=== PATIENT | female | born 1980 | race Caucasian/White ===

== ENCOUNTER 2018-12-11 21:46 | Emergency (ER) | payer BC, OTHER ==
--- NOTE | 2018-12-11 22:11 | EDM.PDOC ---
ED HPI GENERAL MEDICAL PROBLEM - General Chief Complaint: Chest Pain Stated Complaint: CHEST TIGHTNESS/SURGERY 3 WKS AGO Time Seen by Provider: 12/11/18 22:11 Source of Information: Reports: Patient History Limitations: Reports: No Limitations - History of Present Illness INITIAL COMMENTS - FREE TEXT/NARRATIVE: 38-year-old female presents to the ED for evaluation of transient left precordial chest pain which she described as quite burning in intensity. A similar event last evening and seemed to get better after taking 2 Tums. Tonight about 0630 hrs. she developed precordial chest discomfort with burning discomfort but Tums did not seem to help. She had not yet eaten any supper. She has taken to 325 mg aspirins chewed. At present she has no chest pain. Of note patient is 3 weeks post resection of 10-12 inches of her left hemicolon due to severe diverticulitis and a coincidental appendectomy because it was quite firm and hard and abnormal looking. She is back to work today. She has been using Tylenol for pain relief without use of Motrin or Aleve. Does have a mild history of GERD. Doesn't use Tums or Rolaids usually. Denies cough or sputum production. Tonight the pain was bad enough that she did have a small emesis. She got flushed hot and broke out in a bit of a sweat as well. Feels completely back to normal now. She does smoke 4-5 cigarettes a day. Onset: Today Onset Date: 12/11/18 Onset Time: 18:30 Duration: Minutes:, Intermittent, Waxing/Waning Location: Reports: Chest (Left precordial chest pain) Quality: Reports: Ache, Burning Severity: Moderate (Transient lasted about a half an hour or more. No relief with Tums or Rolaids.) Improves with: Reports: None, Other (Pain is gone away spontaneously.) Worsens with: Reports: None Context: Denies: Activity, Exercise, Lifting, Sick Contact, Trauma, Other Associated Symptoms: Reports: Chest Pain, Diaphoresis, Nausea/Vomiting (Had a small emesis of bilious material.), Weakness (Weak and diaphoretic for a period of time). 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 [No Known Home Meds] 12/11/18 [History] Past Medical History Gastrointestinal History: Reports: GERD (Usually very minor.), Other (See Below ) (Recently had a large section of her left hemicolon removed due to extensive diverticulitis. She believes 10-12 inches was removed. Incidental appendectomy) - Past Surgical History GI Surgical History: Reports: Appendectomy (Done at the time that she had left sigmoid colon resection due to extensive diverticulitis because the appendix appeared to be abnormally firm and abnormal in appearance.), Other (See Below) ( Resection of 10-12 inches of her left hemicolon due to extensive diverticulitis. ) Social & Family History - Tobacco Use Smoking Status *Q: Current Every Day Smoker Tobacco Use Within Last Twelve Months: Cigarettes - Living Situation & Occupation Living situation: Reports: Occupation: Employed ED ROS GENERAL - Review of Systems Review Of Systems: See Below (About 4-5 and a) Constitutional: Reports: Malaise, Weakness, Fatigue, Decreased Appetite. Denies : Fever, Chills, Weight Loss HEENT: Reports: No Symptoms Respiratory: Reports: No Symptoms. Denies: Shortness of Breath, Wheezing, Pleuritic Chest Pain Cardiovascular: Reports: Chest Pain, Lightheadedness (They get a little lightheaded and dizzy when the pain was quite intense.). Denies: Blood Pressure Problem, Claudication (She has to present illness), Dyspnea on Exertion , Edema, Orthopnea, Palpitations Endocrine: Reports: No Symptoms GI/Abdominal: Reports: No Symptoms, Other (Feels she is recovering from her recent laparoscopic colon resection for bad diverticulitis and coincidental appendectomy quite well.) : Reports: No Symptoms Musculoskeletal: Reports: No Symptoms Skin: Reports: No Symptoms Neurological: Reports: No Symptoms Psychiatric: Reports: No Symptoms Hematologic/Lymphatic: Reports: No Symptoms Immunologic: Reports: No Symptoms ED EXAM, GENERAL - Physical Exam Exam: See Below Exam Limited By: No Limitations General Appearance: Alert, WD/WN, No Apparent Distress, Other (She remains mildly pallid.) Eye Exam: Bilateral Eye: Normal Inspection (Mildly pale.) Throat/Mouth: Normal Inspection, Normal Lips, Normal Oropharynx Neck: Normal Inspection, Supple, Non-Tender, Full Range of Motion. No: Lymphadenopathy (L), Lymphadenopathy (R) Respiratory/Chest: No Respiratory Distress, Lungs Clear, Normal Breath Sounds, No Accessory Muscle Use Cardiovascular: Normal Peripheral Pulses, Regular Rate, Rhythm, No Edema, No Gallop, No Murmur, No Rub, Other (I could elicit no chest wall tenderness.) Peripheral Pulses: 3+: Posterior Tibial (L), Posterior Tibial (R), Dorsalis Pedis (L), Dorsalis Pedis (R) GI/Abdominal: Normal Bowel Sounds, Soft, Non-Tender, No Organomegaly, No Distention, No Abnormal Bruit, No Mass, Pelvis Stable, Other (Surgical wounds appear to be healing very well.) Back Exam: Normal Inspection ( There is no tenderness in the epigastrium or right upper quadrant of the abdomen.), Full Range of Motion. No: CVA Tenderness (R) Extremities: Other (Lower extremities in particular are normal with no signs of) Neurological: Alert ( potential DVT.), Oriented, CN II-XII Intact, Normal Cognition, Normal Gait Psychiatric: Normal Affect, Normal Mood Skin Exam: Warm, Dry, Intact, No Rash (Mild pallor), Pallor EKG INTERPRETATION EKG Date: 12/11/18 Time: 10:05 Rhythm: NSR Rate (Beats/Min): 77 [place]: Normal P-Wave: Present QRS: Other (Early R-wave transition. Consider septal hypertrophy pattern.) ST-T: Normal QT: Normal EKG Interpretation Comments: Essentially normal ECG Course - Vital Signs Last Recorded V/S: Last Vital Signs Temp 36.3 C 12/11/18 21:57 Pulse 76 12/11/18 21:57 Resp 20 12/11/18 21:57 BP 135/93 H 12/11/18 21:57 Pulse Ox 100 12/11/18 21:57 - Orders/Labs/Meds Orders: Active Orders 24 hr Category Date Time Status EKG Documentation Completion [RC] ASDIRECTED Care 12/11/18 22:02 Active Chest 1V Frontal [CR] Stat Exams 12/11/18 22:24 Taken EKG 12 Lead [EK] Stat Ther 12/11/18 22:02 Ordered Labs: Laboratory Tests 12/11/18 12/11/18 12/11/18 Range/Units 22:35 22:35 22:35 WBC 10.97 H (3.98-10.04) K/mm3 RBC 4.41 (3.98-5.22) M/mm3 Hgb 13.1 (11.2-15.7) gm/L Hct 38.9 (34.1-44.9) % MCV 88.2 (79.4-94.8) fl MCH 29.7 (25.6-32.2) pg MCHC 33.7 (32.2-35.5) g/dl RDW Std Deviation 39.4 (36.4-46.3) fL Plt Count 341 (182-369) K/mm3 MPV 9.1 L (9.4-12.3) fl Neutrophils % (Manual) 56 (40-60) % Band Neutrophils % 0 (0-10) % Lymphocytes % (Manual) 36 (20-40) % Atypical Lymphs % 0 % Monocytes % (Manual) 7 (2-10) % Eosinophils % (Manual) 1 (0.7-5.8) % Basophils % (Manual) 0 L (0.1-1.2) Platelet Estimate Adequate Plt Morphology Comment Normal RBC Morph Comment Normal D-Dimer, Quantitative 0.33 (0.19-0.50) mg/L Sodium 141 (136-145) mEq/L Potassium 3.6 (3.5-5.1) mEq/L Chloride 104 (98-107) mEq/L Carbon Dioxide 25 (21-32) mEq/L Anion Gap 15.6 H (5-15) BUN 11 (7-18) mg/dL Creatinine 0.8 (0.55-1.02) mg/dL Est Cr Clr Drug Dosing 98.07 mL/min Estimated GFR (MDRD) > 60 (>60) mL/min BUN/Creatinine Ratio 13.8 L (14-18) Glucose 98 (74-106) mg/dL Calcium 11.0 H (8.5-10.1) mg/dL Total Bilirubin 0.4 (0.2-1.0) mg/dL AST 15 (15-37) U/L ALT 34 (14-59) U/L Alkaline Phosphatase 46 (46-116) U/L CK-MB (CK-2) < 0.5 (0-3.6) ng/ml Troponin I < 0.017 (0.00-0.056) ng/mL C-Reactive Protein < 0.2 (<1.0) mg/dL Total Protein 7.8 (6.4-8.2) g/dl Albumin 4.2 (3.4-5.0) g/dl Globulin 3.6 gm/dL Albumin/Globulin Ratio 1.2 (1-2) H. pylori IgG Antibody (NEGATIVE) 12/11/18 Range/Units 22:35 WBC (3.98-10.04) K/mm3 RBC (3.98-5.22) M/mm3 Hgb (11.2-15.7) gm/L Hct (34.1-44.9) % MCV (79.4-94.8) fl MCH (25.6-32.2) pg MCHC (32.2-35.5) g/dl RDW Std Deviation (36.4-46.3) fL Plt Count (182-369) K/mm3 MPV (9.4-12.3) fl Neutrophils % (Manual) (40-60) % Band Neutrophils % (0-10) % Lymphocytes % (Manual) (20-40) % Atypical Lymphs % % Monocytes % (Manual) (2-10) % Eosinophils % (Manual) (0.7-5.8) % Basophils % (Manual) (0.1-1.2) Platelet Estimate Plt Morphology Comment RBC Morph Comment D-Dimer, Quantitative (0.19-0.50) mg/L Sodium (136-145) mEq/L Potassium (3.5-5.1) mEq/L Chloride (98-107) mEq/L Carbon Dioxide (21-32) mEq/L Anion Gap (5-15) BUN (7-18) mg/dL Creatinine (0.55-1.02) mg/dL Est Cr Clr Drug Dosing mL/min Estimated GFR (MDRD) (>60) mL/min BUN/Creatinine Ratio (14-18) Glucose (74-106) mg/dL Calcium (8.5-10.1) mg/dL Total Bilirubin (0.2-1.0) mg/dL AST (15-37) U/L ALT (14-59) U/L Alkaline Phosphatase (46-116) U/L CK-MB (CK-2) (0-3.6) ng/ml Troponin I (0.00-0.056) ng/mL C-Reactive Protein (<1.0) mg/dL Total Protein (6.4-8.2) g/dl Albumin (3.4-5.0) g/dl Globulin gm/dL Albumin/Globulin Ratio (1-2) H. pylori IgG Antibody Negative (NEGATIVE) Meds: Medications Discontinued Medications Generic Name Dose Route Start Last Admin Trade Name Freq PRN Reason Stop Dose Admin Famotidine 20 mg 12/11/18 23:57 12/12/18 00:06 Pepcid PO 12/11/18 23:58 20 mg ONETIME ONE Administration Pantoprazole Sodium 40 mg 12/11/18 23:57 12/12/18 00:06 Protonix PO 12/11/18 23:58 40 mg ONETIME ONE Administration - Radiology Interpretation Free Text/Narrative:: 38-year-old female brought to the ED for evaluation of a significant bout of left anterior chest pain is strong burning component to the pain. Pain did get quite intense for a period of time causing her to become diaphoretic cool clammy and she had a small bilious emesis. She states Tums did not help and she did take 2 baby aspirins chewed about an hour ago. At the time of presentation the ED she is pain-free and feels completely back to normal. At a similar type event last night that he seemed to improve with 2 Tums. Is patient is that this is GI in origin. 3 ECG is sinus rhythm with no signs of ischemia. Plan 1 view chest x-ray to be done in routine labs to include a d-dimer due to recent surgery and cardiac markers. - Re-Assessments/Exams Free Text/Narrative Re-Assessment/Exam: 12/11/18 23:13 chest x-ray done portably is within normal limits. Lungs are clear clinic silhouette is normal in size and shape. No sign of vascular congestion no pneumothorax. 12/11/18 23:53 Labs are finally back. White count is slightly elevated at 10.97. Differential is normal with 56% neutrophils and no band cells reported. Hemoglobin is 13.1 with hematocrit of 38.9. Platelet counts 341,000. D-dimer is normal at 0.33. Chemistry shows a sodium of 141. Potassium 3.6. Chloride 104 with a bicarbonate of 25. And a gap minimally elevated at 15.6. BUN is 11 with a creatinine of 0.8. Glucose is 98. Calcium is 11.0 bilirubin is 0.4 remainder the liver function is normal CK-MB fraction is less than 0.5 troponin I is less than 0.017. C-reactive protein is less than 0.2. H. pylori was negative. Protein is 7.8 with an albumin fraction of 4.2. Pain did not come back glucose was in the ED. So therefore ice I suspect she's had gastroesophageal reflux likely during the night in the last few days that has precipitated esophageal spasm. Plan will be to place her on Prilosec 20 mg everyday to bedtime for the next 6 weeks. In the meantime will place her on Pepcid 20 mg now and the Prilosec first dose today as well. Follow-up with her personal care physician for EGD if symptoms persist. Departure - Departure Time of Disposition: 23:57 Disposition: Home, Self-Care 01 Condition: Fair Clinical Impression: Esophageal spasm, Non-cardiac chest pain Instructions: Esophageal Spasm Referrals: Hilaria Abreu NP [Primary Care Provider] - Forms: ED Department Discharge Additional Instructions: Evaluation the emergency room tonight in regards to development of left precordial chest pain which was burning and sharp and stabbing in intensity. It was fairly intense for a period of time and did precipitate some mild vomiting. Since coming to the ED remained pain-free. This suggests noncardiac etiology of chest pain. Complete laboratory tests were carried out and revealed no evidence of heart related illness and no blood clots in the lungs is x-ray was normal ECG was normal as well. It therefore appears that esophageal spasm was the most likely cause of your transient left-sided chest pain both last night and again tonight. This is likely from reflux of stomach contents including acid up into the lower food pipe during sleep and sometime in the last few days. This would can inflame the lower part of the food pipe for 10 days after 1 night of reflux. So for suggest using Pepcid 20 mg once daily at bedtime for the next 5 days and then starting Prilosec 20 g once daily for the next 6 weeks tomorrow night. In the ED tonight you're given the first dose of Pepcid 20 mg and Protonix 40 mg by mouth use Tums or Rolaids if symptoms recur. If symptoms continue then follow-up with your primary care physician to arrange an upper GI endoscopy to have a look down your food pipe and stomach. Of note the bacteria that causes a lot of indigestion dyspepsia and heartburn and peptic ulcer disease called H. pylori testing today was negative. - My Orders Last 24 Hours: My Active Orders 12/11/18 22:02 EKG Documentation Completion [RC] ASDIRECTED EKG 12 Lead [EK] Stat 12/11/18 22:24 Chest 1V Frontal [CR] Stat - Assessment/Plan Last 24 Hours: My Active Orders 12/11/18 22:02 EKG Documentation Completion [RC] ASDIRECTED EKG 12 Lead [EK] Stat 12/11/18 22:24 Chest 1V Frontal [CR] Stat
[2018-12-11] MEDS ORDERED: Famotidine 20 MG Tab PO ONE (23:57)
[2018-12-11] MEDS ORDERED: Pantoprazole 40 MG Tab.CR PO ONE (23:57)
--- NOTE | 2018-12-12 06:35 | CR ---
Chest: Frontal view of the chest was obtained. Comparison: No prior chest x-ray. Heart size and mediastinum are within normal limits. Lungs are clear. Bony structures are grossly intact Impression: 1. Nothing acute is appreciated on frontal chest x-ray. Diagnostic code #1
== END 2018-12-12 00:09 | disposition home or self-care (01) ==
LOC: JD.ED 21:46
DX: K22.4 Dyskinesia of esophagus (principal); R07.89 Other chest pain; F17.210 Nicotine dependence, cigarettes, uncomplicated; Z88.1 Allergy status to other antibiotic agents; Z88.2 Allergy status to sulfonamides
CPT/HCPCS: 36415; 71045; 80053; 82553; 84484; 85007; 85027; 85379; 86140; 86677; 93005; 99285; A9270; 93010; 99284

== ENCOUNTER 2019-08-20 16:22 | Emergency (ER) | payer OTHER ==
[2019-08-20] MEDS ORDERED: Sodium Chloride 0.9% 10 ML Syringe FLUSH PRN ×2 (16:46→16:56)
[2019-08-20] MEDS ORDERED: Diatrizoate Meglumine/Diatrizoate Sodium 37% 120 ML Bottle PO ONE (16:56)
[2019-08-20] MEDS ORDERED: Iopamidol 612 MG/ML 100 ML Bottle IVPUSH ONE (16:56)
[2019-08-20] MEDS ORDERED: Sodium Chloride 0.9% 1,000 ML IV SCH (17:00)
--- NOTE | 2019-08-20 18:28 | EDM.PDOC ---
ED HPI GENERAL MEDICAL PROBLEM - General Chief Complaint: Abdominal Pain Stated Complaint: ABDOMINAL PAIN AND FEVER ZACHERY SENT PT OVER Time Seen by Provider: 08/20/19 16:37 Source of Information: Reports: Patient History Limitations: Reports: No Limitations - History of Present Illness INITIAL COMMENTS - FREE TEXT/NARRATIVE: The patient presents with left lower abdominal pain. This started about 3 to 4 days ago. She has a history of diverticulitis with an abscess back in September and in October she had a colon resection. There are times since then that she will have pain but she watches what she eats and it goes away. She has no fever , chills, cough, chest pain, shortness of breath, nausea or vomiting. She has no dysuria or hematuria. She also has a low grade temp. She was seen at the walk in and told to come over here for possible CT scan. Onset: Gradual Duration: Day(s): (4) Location: Reports: Abdomen Quality: Reports: Sharp Severity: Moderate Improves with: Reports: None Worsens with: Reports: None Associated Symptoms: Denies: Chest Pain, Cough, Fever/Chills, Headaches, Nausea/ Vomiting, Shortness of Breath Left Lower Abdomen Pain Score (Numeric/FACES): 5 - Related Data Allergies Allergy/AdvReac Type Severity Reaction Status Date / Time cyclosporine Allergy Rash Verified 08/20/19 16:39 Penicillins Allergy Rash Verified 08/20/19 16:39 Sulfa (Sulfonamide Allergy Rash Verified 08/20/19 16:39 Antibiotics) erthyromycin Allergy Rash Uncoded 08/20/19 16:39 Home Meds: Home Meds Acyclovir 0 mg PO ASDIRECTED 08/20/19 [History] Butler-3/DHA/Epa/Fish Oil [Fish Oil 1,000 mg Softgel] 1 each PO DAILY 08/20/19 [ History] Pantoprazole [ProTONIX] 40 mg PO DAILY 08/20/19 [History] Past Medical History Cardiovascular History: Reports: None Respiratory History: Reports: None Gastrointestinal History: Reports: Diverticulosis, GERD, Other (See Below) Other Gastrointestinal History: Colon Abscess Genitourinary History: Reports: None 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 Social & Family History - Tobacco Use Smoking Status *Q: Never Smoker - Caffeine Use Caffeine Use: Reports: Coffee - Recreational Drug Use Recreational Drug Use: No - Living Situation & Occupation Living situation: Reports: Occupation: Employed ED ROS GENERAL - Review of Systems Review Of Systems: See Below Constitutional: Reports: No Symptoms HEENT: Reports: No Symptoms Respiratory: Reports: No Symptoms Cardiovascular: Reports: No Symptoms Endocrine: Reports: No Symptoms GI/Abdominal: Reports: Abdominal Pain. Denies: Nausea, Vomiting : Reports: No Symptoms ED EXAM, GI/ABD - Physical Exam Exam: See Below Exam Limited By: No Limitations General Appearance: Alert, No Apparent Distress Ears: Normal External Exam Nose: Normal Inspection Head: Atraumatic, Normocephalic Neck: Normal Inspection Respiratory/Chest: No Respiratory Distress, Lungs Clear, Normal Breath Sounds Cardiovascular: Regular Rate, Rhythm, No Edema, No Murmur GI/Abdominal Exam: Soft, No Organomegaly, No Mass, Tender (Moderate tenderness to the left lower abdomen) Course - Vital Signs Last Recorded V/S: Last Vital Signs Temp 99.4 F 08/20/19 16:36 Pulse 76 08/20/19 16:36 Resp 16 08/20/19 16:36 BP 121/82 08/20/19 16:36 Pulse Ox 99 08/20/19 16:36 - Orders/Labs/Meds Orders: Active Orders 24 hr Category Date Time Status Peripheral IV Care [RC] . DIRECTED Care 08/20/19 16:47 Active Sodium Chloride 0.9% [Normal Saline] 1,000 ml Med 08/20/19 17:00 Active IV ASDIRECTED Sodium Chloride 0.9% [Saline Flush] Med 08/20/19 16:46 Active 10 ml FLUSH ASDIRECTED PRN Sodium Chloride 0.9% [Saline Flush] Med 08/20/19 16:56 Active 10 ml FLUSH ONETIME PRN Peripheral IV Insertion Adult [OM.PC] Stat Oth 08/20/19 16:46 Ordered Medication Orders Sodium Chloride (Normal Saline) 1,000 mls @ 125 mls/hr IV ASDIRECTED OMI Last Admin: 08/20/19 16:56 Dose: 125 mls/hr Sodium Chloride (Saline Flush) 10 ml FLUSH ASDIRECTED PRN PRN Reason: Keep Vein Open Last Admin: 08/20/19 16:55 Dose: 10 ml Sodium Chloride (Saline Flush) 10 ml FLUSH ONETIME PRN PRN Reason: Keep Vein Open Last Admin: 08/20/19 18:13 Dose: 10 ml Labs: Laboratory Tests 08/20/19 08/20/19 08/20/19 Range/Units 16:50 16:50 16:50 WBC 8.07 (3.98-10.04) K/mm3 RBC 4.63 (3.98-5.22) M/mm3 Hgb 14.0 (11.2-15.7) gm/dl Hct 41.2 (34.1-44.9) % MCV 89.0 (79.4-94.8) fl MCH 30.2 (25.6-32.2) pg MCHC 34.0 (32.2-35.5) g/dl RDW Std Deviation 39.3 (36.4-46.3) fL Plt Count 279 (182-369) K/mm3 MPV 9.0 L (9.4-12.3) fl Neut % (Auto) 52.0 (34.0-71.1) % Lymph % (Auto) 36.1 (19.3-51.7) % Bracken % (Auto) 10.0 (4.7-12.5) % Eos % (Auto) 1.5 (0.7-5.8) Baso % (Auto) 0.2 (0.1-1.2) % Neut # (Auto) 4.19 (1.56-6.13) K/mm3 Lymph # (Auto) 2.91 (1.18-3.74) K/mm3 Bracken # (Auto) 0.81 H (0.24-0.36) K/mm3 Eos # (Auto) 0.12 (0.04-0.36) K/mm3 Baso # (Auto) 0.02 (0.01-0.08) K/mm3 Sodium 142 (136-145) mEq/L Potassium 4.0 (3.5-5.1) mEq/L Chloride 106 (98-107) mEq/L Carbon Dioxide 25 (21-32) mEq/L Anion Gap 15.0 (5-15) BUN 14 (7-18) mg/dL Creatinine 1.0 (0.55-1.02) mg/dL Est Cr Clr Drug Dosing 77.70 mL/min Estimated GFR (MDRD) > 60 (>60) mL/min BUN/Creatinine Ratio 14.0 (14-18) Glucose 88 (74-106) mg/dL Calcium 8.6 D (8.5-10.1) mg/dL Total Bilirubin 0.3 (0.2-1.0) mg/dL AST 11 L (15-37) U/L ALT 32 (14-59) U/L Alkaline Phosphatase 41 L (46-116) U/L Total Protein 7.1 (6.4-8.2) g/dl Albumin 4.0 (3.4-5.0) g/dl Globulin 3.1 gm/dL Albumin/Globulin Ratio 1.3 (1-2) Lipase 175 (73-393) U/L HCG, Qual Negative (NEGATIVE) Urine Color (Yellow) Urine Appearance (Clear) Urine pH (5.0-8.0) Ur Specific Kellogg (1.005-1.030) Urine Protein (Negative) Urine Glucose (UA) (Negative) Urine Ketones (Negative) Urine Occult Blood (Negative) Urine Nitrite (Negative) Urine Bilirubin (Negative) Urine Urobilinogen (0.2-1.0) Ur Leukocyte Esterase (Negative) Urine RBC (0-5) /hpf Urine WBC (0-5) /hpf Ur Squamous Epith Cells (0-5) /hpf Urine Bacteria (FEW) /hpf Urine Mucus (FEW) /hpf 08/20/19 Range/Units 17:04 WBC (3.98-10.04) K/mm3 RBC (3.98-5.22) M/mm3 Hgb (11.2-15.7) gm/dl Hct (34.1-44.9) % MCV (79.4-94.8) fl MCH (25.6-32.2) pg MCHC (32.2-35.5) g/dl RDW Std Deviation (36.4-46.3) fL Plt Count (182-369) K/mm3 MPV (9.4-12.3) fl Neut % (Auto) (34.0-71.1) % Lymph % (Auto) (19.3-51.7) % Bracken % (Auto) (4.7-12.5) % Eos % (Auto) (0.7-5.8) Baso % (Auto) (0.1-1.2) % Neut # (Auto) (1.56-6.13) K/mm3 Lymph # (Auto) (1.18-3.74) K/mm3 Bracken # (Auto) (0.24-0.36) K/mm3 Eos # (Auto) (0.04-0.36) K/mm3 Baso # (Auto) (0.01-0.08) K/mm3 Sodium (136-145) mEq/L Potassium (3.5-5.1) mEq/L Chloride (98-107) mEq/L Carbon Dioxide (21-32) mEq/L Anion Gap (5-15) BUN (7-18) mg/dL Creatinine (0.55-1.02) mg/dL Est Cr Clr Drug Dosing mL/min Estimated GFR (MDRD) (>60) mL/min BUN/Creatinine Ratio (14-18) Glucose (74-106) mg/dL Calcium (8.5-10.1) mg/dL Total Bilirubin (0.2-1.0) mg/dL AST (15-37) U/L ALT (14-59) U/L Alkaline Phosphatase (46-116) U/L Total Protein (6.4-8.2) g/dl Albumin (3.4-5.0) g/dl Globulin gm/dL Albumin/Globulin Ratio (1-2) Lipase (73-393) U/L HCG, Qual (NEGATIVE) Urine Color Yellow (Yellow) Urine Appearance Clear (Clear) Urine pH 6.5 (5.0-8.0) Ur Specific Kellogg > or = 1.030 (1.005-1.030) Urine Protein Negative (Negative) Urine Glucose (UA) Negative (Negative) Urine Ketones Negative (Negative) Urine Occult Blood Negative (Negative) Urine Nitrite Negative (Negative) Urine Bilirubin Negative (Negative) Urine Urobilinogen 0.2 (0.2-1.0) Ur Leukocyte Esterase Negative (Negative) Urine RBC Not seen (0-5) /hpf Urine WBC 0-5 (0-5) /hpf Ur Squamous Epith Cells 10-20 H (0-5) /hpf Urine Bacteria Not seen (FEW) /hpf Urine Mucus Not seen (FEW) /hpf Meds: Medications Generic Name Dose Route Start Last Admin Trade Name Freq PRN Reason Stop Dose Admin Sodium Chloride 1,000 mls @ 125 mls/hr 08/20/19 17:00 08/20/19 16:56 Normal Saline IV 125 mls/hr ASDIRECTED OIM Administration Sodium Chloride 10 ml 08/20/19 16:46 08/20/19 16:55 Saline Flush FLUSH 10 ml ASDIRECTED PRN Administration Keep Vein Open Sodium Chloride 10 ml 08/20/19 16:56 08/20/19 18:13 Saline Flush FLUSH 10 ml ONETIME PRN Administration Keep Vein Open Discontinued Medications Generic Name Dose Route Start Last Admin Trade Name Freq PRN Reason Stop Dose Admin Diatrizoate Meglum/Diatrizoate Sod 120 ml 08/20/19 16:56 08/20/19 18:13 Gastrografin 37% PO 08/20/19 16:57 120 ml ONETIME ONE Administration Iopamidol 100 ml 08/20/19 16:56 08/20/19 18:13 Isovue-300 (61%) IVPUSH 08/20/19 16:57 100 ml ONETIME ONE Administration - Re-Assessments/Exams Free Text/Narrative Re-Assessment/Exam: 08/20/19 18:27 I ordered an IV saline lock, labs, UA and a CT of her abdomen and pelvis with IV and oral contrast. Her CBC and CMP look good. Her lipase is negative. Her HCG is negative and her UA shows no UTI. I am waiting for the CT scan now. 08/20/19 18:[address] shows a 4.3cm cyst within the left adnexa most likely ovarian in location. Mild increased stool throughout the colon. No additional abnormality is appreciated on CT study of the abdomen and pelvis. I will have her take some miralax to help clean her out and I will have her follow up with Dr Woods. Departure - Departure Time of Disposition: 19:00 Disposition: Home, Self-Care 01 Condition: Good Clinical Impression: Left ovarian cyst Abdominal pain Qualifiers: Abdominal location: left lower quadrant Qualified Code(s): R10.32 - Left lower quadrant pain - Discharge Information *PRESCRIPTION DRUG MONITORING PROGRAM REVIEWED*: Not Applicable *COPY OF PRESCRIPTION DRUG MONITORING REPORT IN PATIENT LAWSON: Not Applicable Referrals: Hilaria Abreu NP [Primary Care Provider] - Grecia Woods MD [Physician] - 1 Week Forms: ED Department Discharge Additional Instructions: Drink plenty of fluids. Try some miralax to have a bowel movement. Take tylenol or motrin for pain. Follow up with Dr Woods for the ovarian cyst. Please return if you are worse. Sepsis Event Note - Evaluation Sepsis Screening Result: No Definite Risk - Focused Exam Vital Signs: Vital Signs Temp Pulse Resp BP Pulse Ox 08/20/19 16:36 99.4 F 76 16 121/82 99 Date Exam was Performed: 08/20/19 Time Exam was Performed: 18:56 - My Orders Last 24 Hours: My Active Orders 08/20/19 16:46 Sodium Chloride 0.9% [Saline Flush] 10 ml FLUSH ASDIRECTED PRN Peripheral IV Insertion Adult [OM.PC] Stat 08/20/19 16:47 Peripheral IV Care [RC] . DIRECTED 08/20/19 16:56 Sodium Chloride 0.9% [Saline Flush] 10 ml FLUSH ONETIME PRN 08/20/19 17:00 Sodium Chloride 0.9% [Normal Saline] 1,000 ml IV ASDIRECTED - Assessment/Plan Last 24 Hours: My Active Orders 08/20/19 16:46 Sodium Chloride 0.9% [Saline Flush] 10 ml FLUSH ASDIRECTED PRN Peripheral IV Insertion Adult [OM.PC] Stat 08/20/19 16:47 Peripheral IV Care [RC] . DIRECTED 08/20/19 16:56 Sodium Chloride 0.9% [Saline Flush] 10 ml FLUSH ONETIME PRN 08/20/19 17:00 Sodium Chloride 0.9% [Normal Saline] 1,000 ml IV ASDIRECTED
--- NOTE | 2019-08-20 18:53 | CT ---
CT abdomen and pelvis Technique: Multiple axial sections were obtained from above the dome of the diaphragm inferiorly through the pubic symphysis. Intravenous contrast and oral contrast has been given. Delayed images were obtained through the bladder. Comparison: No prior abdominal imaging. Findings: Visualized lung bases show nothing acute. Liver contains no focal abnormality. Spleen appears within normal limits. Adrenal glands show no nodule. Pancreas appears within normal limits. Gallbladder contains no calcified gallstones. Kidneys show symmetric contrast enhancement without hydronephrosis or mass. Aorta shows no aneurysm. No retroperitoneal adenopathy or mesenteric abnormalities are seen. Cyst is noted within the left adnexa most likely ovarian in location measuring 4.3 cm. No additional pelvic abnormality is appreciated. No free fluid or inflammatory change is seen. Mild increased stool is noted within the colon. Delayed images shows contrast within the distal ureters and within the bladder. Appendix not definitely appreciated. Bone window settings were reviewed which shows no acute osseous finding. Impression: 1. 4.3 cm cyst within the left adnexa most likely ovarian in location. 2. Mild increased stool throughout the colon. 3. No additional abnormality is appreciated on CT study of the abdomen and pelvis. Diagnostic code #3 This report was dictated in [place] Standard Time
== END 2019-08-20 19:12 | disposition home or self-care (01) ==
LOC: JD.ED 16:22
DX: N83.202 Unspecified ovarian cyst, left side (principal); Z88.1 Allergy status to other antibiotic agents; Z88.0 Allergy status to penicillin; Z88.2 Allergy status to sulfonamides
CPT/HCPCS: 36415; 74177; 80053; 81001; 83690; 84703; 85025; 99284; J7030; Q9963; Q9967; 99283

== ENCOUNTER 2020-09-20 16:31 | Emergency (ER) | payer OTHER ==
--- NOTE | 2020-09-20 17:52 | EDM.PDOC ---
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 This started last night. She noticed a couple pea sized clots. She is G1 and 6 weeks gestation. She said the left sided pelvic pain felt like when she had ovarian cysts. She has no fever, chills, cough, congestion, runny nose, chest pain, shortness of breath, abdominal pain, nausea or vomiting. She has no diarrhea or dysuria. Dr Hoyos is her doctor. Onset: Gradual Duration: Day(s): (last night) Location: Reports: Pelvis Quality: Reports: Other (cramping) Severity: Moderate Improves with: Reports: None Worsens with: Reports: None Associated Symptoms: Reports: No Other Symptoms Left Pelvic Pain Score (Numeric/FACES): 5 - Related Data Allergies Allergy/AdvReac Type Severity Reaction Status Date / Time cyclosporine Allergy Rash Verified 09/20/20 17:15 Penicillins Allergy Rash Verified 09/20/20 17:15 Sulfa (Sulfonamide Allergy Rash Verified 09/20/20 17:15 Antibiotics) erthyromycin Allergy Rash Uncoded 09/20/20 17:15 Home Meds: Home Meds Acyclovir 0 mg PO ASDIRECTED 08/20/19 [History] Pantoprazole [ProTONIX] 40 mg PO DAILY 08/20/19 [History] Vit No.129/Iron/FA [ Tablet] 1 each PO DAILY 09/20/20 [History] Past Medical History - Past Health History Medical/Surgical History: Denies Medical/Surgical History Cardiovascular History: Reports: None Respiratory History: Reports: None Gastrointestinal History: Reports: Diverticulosis, GERD, Other (See Below) Other Gastrointestinal History: Colon Abscess Genitourinary History: Reports: None ICE CRUSHER History: Reports: Polycystic Ovaries, Musculoskeletal History: Reports: None Neurological History: Reports: None Psychiatric History: Reports: None Endocrine/Metabolic History: Reports: None Hematologic History: Reports: None Immunologic History: Reports: None Oncologic (Cancer) History: Reports: None Dermatologic History: Reports: None - Infectious Disease History Infectious Disease History: Reports: None - Past Surgical History HEENT Surgical History: Reports: Tonsillectomy GI Surgical History: Reports: Appendectomy, Other (See Below) Other GI Surgeries/Procedures: Pt had colon resection in October 2018. Social & Family History - Family History Family Medical History: No Pertinent Family History - Tobacco Use Tobacco Use Status *Q: Current Some Day Tobacco User Years of Tobacco use: 15 Packs/Tins Daily: 1 Second Hand Smoke Exposure: No - Caffeine Use Caffeine Use: Reports: Coffee - Recreational Drug Use Recreational Drug Use: No - Living Situation & Occupation Living situation: Reports: Occupation: Employed ED ROS GENERAL - Review of Systems Review Of Systems: See Below Constitutional: Reports: No Symptoms HEENT: Reports: No Symptoms Respiratory: Reports: No Symptoms Cardiovascular: Reports: No Symptoms Endocrine: Reports: No Symptoms GI/Abdominal: Reports: No Symptoms : Reports: Other (Left sided pelvic pain and vaginal bleeding) Musculoskeletal: Reports: No Symptoms Skin: Reports: No Symptoms ED EXAM, GI/ABD - Physical Exam Exam: See Below Exam Limited By: No Limitations General Appearance: Alert, No Apparent Distress Ears: Normal External Exam Nose: Normal Inspection Head: Atraumatic, Normocephalic Neck: Normal Inspection Respiratory/Chest: No Respiratory Distress, Lungs Clear, Normal Breath Sounds Cardiovascular: Regular Rate, Rhythm, No Edema, No Murmur GI/Abdominal Exam: Soft, Non-Tender, No Organomegaly, No Mass (Female) Exam: Other (Cervix is closed and a small amount of brownish blood present) Course - Vital Signs Last Recorded V/S: Last Vital Signs Temp 98.1 F 09/20/20 17:12 Pulse 91 09/20/20 17:12 Resp 18 09/20/20 17:12 BP 125/79 09/20/20 17:12 Pulse Ox 99 09/20/20 17:12 - Orders/Labs/Meds Orders: Active Orders 24 hr Category Date Time Status Pelvic Exam, Set Up [RC] ASDIRECTED Care 09/20/20 17:30 Active OB Transvaginal [US] Stat Exams 09/20/20 17:22 Taken PATIENT RETYPE [BBK] Routine Lab 09/20/20 18:14 Ordered Labs: Laboratory Tests 09/20/20 09/20/20 09/20/20 Range/Units 17:37 17:37 17:37 WBC 8.38 (3.98-10.04) K/mm3 RBC 4.36 (3.98-5.22) M/mm3 Hgb 12.3 D (11.2-15.7) gm/dl Hct 38.0 (34.1-44.9) % MCV 87.2 (79.4-94.8) fl MCH 28.2 (25.6-32.2) pg MCHC 32.4 (32.2-35.5) g/dl RDW Std Deviation 40.3 (36.4-46.3) fL Plt Count 340 (182-369) K/mm3 MPV 8.9 L (9.4-12.3) fl Neut % (Auto) 57.5 (34.0-71.1) % Lymph % (Auto) 30.4 (19.3-51.7) % Falls % (Auto) 10.0 (4.7-12.5) % Eos % (Auto) 1.7 (0.7-5.8) Baso % (Auto) 0.2 (0.1-1.2) % Neut # (Auto) 4.81 (1.56-6.13) K/mm3 Lymph # (Auto) 2.55 (1.18-3.74) K/mm3 Falls # (Auto) 0.84 H (0.24-0.36) K/mm3 Eos # (Auto) 0.14 (0.04-0.36) K/mm3 Baso # (Auto) 0.02 (0.01-0.08) K/mm3 HCG, Quant 4747.0 mIU/mL Blood Type O POSITIVE - Re-Assessments/Exams Free Text/Narrative Re-Assessment/Exam: 09/20/20 17:52 I ordered labs and a transvaginal US. 09/20/20 19:05 Her CBC looks good. Her quant HCT is 4747. Her blood type is O positive. Her US shows a sac like structure is present within the uterus without yolk sac or pole identified this cannot be confirmed as an intrauterine and ectopic cannot be excluded based on this fact. Correlation with serial beta HCG level suggested. Early intrauterine remains possible. Bilateral ovarian and adnexal cysts identified. Slightly complex cyst on the left with vascular flow is identified. Again, ectopic cannot be excluded and must be correlated with serial beta HCG levels and clinical scenario. I called Dr Hoyos and she will follow up with her on Tuesday or Tuesday. Departure - Departure Time of Disposition: 19:10 Disposition: Home, Self-Care 01 Condition: Good Clinical Impression: Vaginal bleeding affecting early , Ovarian cyst, left Qualifiers: Weeks of gestation: less than 8 weeks Qualified Code(s): Z3A.01 - Less than 8 weeks gestation of - Discharge Information *PRESCRIPTION DRUG MONITORING PROGRAM REVIEWED*: Not Applicable *COPY OF PRESCRIPTION DRUG MONITORING REPORT IN PATIENT [place]SON: Not Applicable Referrals: Bekah Hoyos MD [Primary Care Provider] - 3 Days Forms: ED Department Discharge Additional Instructions: Do not have vaginal intercourse until cleared by Dr Hoyos. No heavy lifting over 20 pounds. Please return if you have more pain or bleeding. Follow up with Dr Hoyos on Tuesday or Tuesday. If you do not hear from the clinic by noon Tuesday call her office to get a follow up time. Sepsis Event Note (ED) - Evaluation Sepsis Screening Result: No Definite Risk - Focused Exam Vital Signs: Vital Signs Temp Pulse Resp BP Pulse Ox 09/20/20 17:12 98.1 F 91 18 125/79 99 - My Orders Last 24 Hours: My Active Orders 09/20/20 17:22 OB Transvaginal [US] Stat 09/20/20 17:30 Pelvic Exam, Set Up [RC] ASDIRECTED 09/20/20 18:14 PATIENT RETYPE [BBK] Routine - Assessment/Plan Last 24 Hours: My Active Orders 09/20/20 17:22 OB Transvaginal [US] Stat 09/20/20 17:30 Pelvic Exam, Set Up [RC] ASDIRECTED 09/20/20 18:14 PATIENT RETYPE [BBK] Routine
--- NOTE | 2020-09-21 10:54 | US ---
First trimester obstetrical ultrasound: Multiple real-time images were obtained transvaginally. Comparison: No previous study is available. Small intrauterine gestational sac is seen. No pole or yolk sac is definitely present at this time. Endometrium is thickened. Both maternal ovaries are seen. Small 3.3 cm cyst noted within the right ovary and slightly complicated cyst within the left ovary measuring 2.3 cm. Small 1.9 cm adnexal cyst is noted. Impression: 1. Small intrauterine gestational sac with no pole or yolk sac. Findings could represent empty gestational sac versus early and structures are not visualized. Consider repeat study in 11 days. 2. Small ovarian adnexal cysts as noted above. Diagnostic code #3 I agree with preliminary report by Nilson finalized on 09/20/20, 7:34 PM VP PRODUCT
== END 2020-09-20 19:17 | disposition home or self-care (01) ==
LOC: JD.ED 16:31
DX: O34.81 Maternal care for other abnormalities of pelvic organs, first trimester (principal); N83.202 Unspecified ovarian cyst, left side; O20.9 Hemorrhage in early pregnancy, unspecified; O99.611 Diseases of the digestive system complicating pregnancy, first trimester; K21.9 Gastro-esophageal reflux disease without esophagitis; Z88.1 Allergy status to other antibiotic agents; Z88.0 Allergy status to penicillin; Z88.2 Allergy status to sulfonamides; Z79.899 Other long term (current) drug therapy; Z3A.01 Less than 8 weeks gestation of pregnancy; Z72.0 Tobacco use
CPT/HCPCS: 36415; 76817; 76817-26; 84702; 85025; 86900; 86901; 99283; 99284-25

== ENCOUNTER 2020-10-11 06:31 | Inpatient (IN) | payer OTHER ==
--- NOTE | 2020-10-11 07:03 | EDM.PDOC ---
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 She reports came on rather suddenly left lower quadrant left mid abdomen about 2100 hrs. last evening. Pain is gradually intensified and is now felt generalized throughout the abdomen. Associated recurrent nausea and vomiting of bilious emesis during the night due to intensity of pain. Last menstrual period was estimated to be around August 17. She has had 1 ultraso unds in which showed a adamson fetus. Patient cannot hardly cough sneeze or walk due to the intensity of the pain. Pain was worsened by traveling in motor vehicle to the hospital with her . No improvement or relief of pain with bowel movements. She had 2 bowel movements overnight. No relief with voiding. Pain is estimated to be 3 out of 10 at rest and 7-8 out of 10 with tr dori to walk. Patient has had no previous abdominal surgery. Patient has been up all night due to the severity of his abdominal pain. She cannot stand or walk fully erect. Patient did see Dr. Hoyos approximately 2 weeks ago for initial evaluation and an ultrasound on October 01. Onset: Sudden Onset Date: 10/10/20 Onset Time: 21:00 Duration: Hour(s):, Constant, Getting Worse Location: Reports: Abdomen (See history of present illness.) Quality: Reports: Ache (Deep aching pain throughout the abdomen worse on the left side.) Severity: Severe Improves with: Reports: Rest Worsens with: Reports: Other (Deep breathing coughing, laughing or trying to walk makes the pain worse.), Movement Context: Reports: Other. Denies: Activity, Exercise, Lifting, Sick Contact, Trauma Associated Symptoms: Denies: No Other Symptoms, Confusion (Occurrence), Chest Pain, Cough, cough w sputum, Diaphoresis, Fever/Chills, Headaches, Loss of Appetite, Malaise, Nausea/Vomiting, Rash, Seizure, Shortness of Breath, Syncope, Weakness Treatments CATTLE DEHORNER: Reports: Acetaminophen Abdomen Pain Score (Numeric/FACES): 8 - Related Data Allergies Allergy/AdvReac Type Severity Reaction Status Date / Time Cephalosporins Allergy Rash Verified 10/11/20 11:20 Penicillins Allergy Rash Verified 10/11/20 07:00 Sulfa (Sulfonamide Allergy Rash Verified 10/11/20 07:00 Antibiotics) erthyromycin Allergy Rash Uncoded 09/20/20 17:15 Home Meds: Home Meds Acyclovir 0 mg PO ASDIRECTED 08/20/19 [History] Pantoprazole [ProTONIX] 40 mg PO DAILY 08/20/19 [History] Vit No.129/Iron/FA [ Tablet] 1 each PO DAILY 09/20/20 [History] Past Medical History - Past Health History Medical/Surgical History: Denies Medical/Surgical History Cardiovascular History: Reports: None Respiratory History: Reports: None Gastrointestinal History: Reports: Diverticulosis, GERD, Other (See Below) Other Gastrointestinal History: Colon Abscess--patient developed severe diverticulitis 2 years ago and developed a very difficult diverticular abscess that was not responding to antibiotic therapy for 5 days. She was thus taken to surgery with resection of 8 inches of colon in [place]. At that time they also did take out her appendix. Genitourinary History: Reports: None CARTON STAPLER History: Reports: Polycystic Ovaries, : 1 Para: 0 Other CARTON STAPLER History: Last normal menstrual period estimated to be August 17. Musculoskeletal History: Reports: None Neurological History: Reports: None Psychiatric History: Reports: None Endocrine/Metabolic History: Reports: None Hematologic History: Reports: None Immunologic History: Reports: None Oncologic (Cancer) History: Reports: None Dermatologic History: Reports: None - Infectious Disease History Infectious Disease History: Reports: None - Past Surgical History HEENT Surgical History: Reports: Tonsillectomy GI Surgical History: Reports: Appendectomy, Other (See Below) Other GI Surgeries/Procedures: Pt had colon resection in October 2018. Social & Family History - Family History Family Medical History: No Pertinent Family History - Caffeine Use Caffeine Use: Reports: Coffee - Living Situation & Occupation Living situation: Reports: Occupation: Employed ED ROS GENERAL - Review of Systems Review Of Systems: See Below Constitutional: Reports: Fatigue, Decreased Appetite. Denies: Fever, Chills, Malaise HEENT: Reports: No Symptoms Respiratory: Reports: Shortness of Breath Cardiovascular: Reports: No Symptoms (Subjective dyspnea as deep breathing makes the abdominal pain worse.) Endocrine: Reports: Fatigue GI/Abdominal: Reports: Abdominal Pain, Decreased Appetite, Nausea, Vomiting (Bilious vomiting times about 5 overnight due to the intensity of the pain.). Denies: Bloody Stool, Constipation (Diffuse severe abdominal pain starting 21 hours last night.), Diarrhea, Difficulty Swallowing, Distension, Flatus, Hematemesis, Hematochezia, Melena, Mucous in Stool : Reports: Frequency Musculoskeletal: Reports: No Symptoms Skin: Reports: No Symptoms Neurological: Reports: No Symptoms Psychiatric: Reports: No Symptoms Hematologic/Lymphatic: Reports: No Symptoms Immunologic: Reports: No Symptoms ED EXAM - Physical Exam Exam: See Below Exam Limited By: No Limitations General Appearance: Alert, WD/WN, Moderate Distress, Other (Temperature is 36.2 degrees. Heart rate 101) Eye Exam: Bilateral Eye: Normal Inspection (No scleral icterus no blepharal pallor.), PERRL Throat/Mouth: Normal Inspection, Normal Lips, Normal Oropharynx, Other Head: Atraumatic, Normocephalic (Tongue is mildly dry.) Neck: Normal Inspection, Supple, Non-Tender, Full Range of Motion. No: Carotid Bruit, Lymphadenopathy (L), Lymphadenopathy (R) Respiratory/Chest: No Respiratory Distress, Lungs Clear, Normal Breath Sounds, No Accessory Muscle Use Cardiovascular: Normal Peripheral Pulses, Regular Rate, Rhythm, No Edema, No Gallop, No Murmur, No Rub GI/Abdominal Exam: Distended (Mildly distended), Guarding, Rebound (She has guarding on the left side with rebound tenderness. Clinically has an acute abdomen with evidence of peritonitis.), Tender (Left lower quadrant adjacent to the umbilicus and left lower quadrant of the abdomen mtender to percussion and suprapubically. ), Abnormal Bowel Sounds (Bowel sounds are decreased from the norm.) Back Exam: Normal Inspection, Full Range of Motion. No: CVA Tenderness (L), CVA Tenderness (R) Extremities: Normal Inspection, Normal Range of Motion, Non-Tender, No Pedal Edema Neurological: Alert, Oriented, CN II-XII Intact Psychiatric: Anxious Skin Exam: Warm, Dry, Intact, Normal Color, No Rash Course - Vital Signs Last Recorded V/S: Last Vital Signs Temp 36.2 C 10/11/20 06:54 Pulse 101 H 10/11/20 06:54 Resp 16 10/11/20 06:54 BP 107/61 10/11/20 06:54 Pulse Ox 100 10/11/20 06:54 - Orders/Labs/Meds Orders: Active Orders 24 hr Category Date Time Status Admission Status [Patient Status] [ADT] Routine ADT 10/11/20 11:48 Ordered Notify Provider Consults [RC] ASDIRECTED Care 10/11/20 08:12 Active Consult to Physician [CONS] Stat Cons 10/11/20 08:11 Active Dextrose 5%-0.9% NaCl [Dextrose 5%-Normal Saline] 1,000 Med 10/11/20 07:15 Active ml IV ASDIRECTED Medication Orders Dextrose/Sodium Chloride (Dextrose 5%-Normal Saline) 1,000 mls @ 500 mls/hr IV ASDIRECTED OMI Last Admin: 10/11/20 07:30 Dose: 500 mls/hr Documented by: MEGHANA Labs: Laboratory Tests 10/11/20 10/11/20 10/11/20 Range/Units 07:20 07:25 07:25 WBC 18.82 H (3.98-10.04) K/mm3 RBC 4.44 (3.98-5.22) M/mm3 Hgb 12.5 (11.2-15.7) gm/dl Hct 37.8 (34.1-44.9) % MCV 85.1 (79.4-94.8) fl MCH 28.2 (25.6-32.2) pg MCHC 33.1 (32.2-35.5) g/dl RDW Std Deviation 40.8 (36.4-46.3) fL Plt Count 337 (182-369) K/mm3 MPV 9.1 L (9.4-12.3) fl Neut % (Auto) 86.2 H (34.0-71.1) % Lymph % (Auto) 7.3 L (19.3-51.7) % [place] % (Auto) 5.8 (4.7-12.5) % Eos % (Auto) 0.3 L (0.7-5.8) Baso % (Auto) 0.1 (0.1-1.2) % Neut # (Auto) 16.22 H (1.56-6.13) K/mm3 Lymph # (Auto) 1.38 (1.18-3.74) K/mm3 [place] # (Auto) 1.10 H (0.24-0.36) K/mm3 Eos # (Auto) 0.05 (0.04-0.36) K/mm3 Baso # (Auto) 0.02 (0.01-0.08) K/mm3 Manual Slide Review Abnormal smear PT (9.7-12.0) SECONDS INR APTT (21.7-31.4) SECONDS Sodium 138 (136-145) mEq/L Potassium 4.0 (3.5-5.1) mEq/L Chloride 101 (98-107) mEq/L Carbon Dioxide 25 (21-32) mEq/L Anion Gap 16.0 H (5-15) BUN 7 (7-18) mg/dL Creatinine 0.7 (0.55-1.02) mg/dL Est Cr Clr Drug Dosing TNP Estimated GFR (MDRD) > 60 (>60) mL/min BUN/Creatinine Ratio 10.0 L (14-18) Glucose 102 (74-106) mg/dL Calcium 8.9 (8.5-10.1) mg/dL Magnesium 1.9 (1.8-2.4) mg/dl Total Bilirubin 0.4 (0.2-1.0) mg/dL AST 12 L (15-37) U/L ALT 23 (14-59) U/L Alkaline Phosphatase 49 (46-116) U/L C-Reactive Protein 4.9 H* (<1.0) mg/dL Total Protein 7.6 (6.4-8.2) g/dl Albumin 3.7 (3.4-5.0) g/dl Globulin 3.9 gm/dL Albumin/Globulin Ratio 1.0 (1-2) HCG, Quant mIU/mL Urine Color Yellow (Yellow) Urine Appearance Clear (Clear) Urine pH 6.0 (5.0-8.0) Ur Specific [place] > or = 1.030 (1.005-1.030) Urine Protein Negative (Negative) Urine Glucose (UA) Negative (Negative) Urine Ketones Negative (Negative) Urine Occult Blood Negative (Negative) Urine Nitrite Negative (Negative) Urine Bilirubin Negative (Negative) Urine Urobilinogen 0.2 (0.2-1.0) Ur Leukocyte Esterase Negative (Negative) Urine RBC Not seen (0-5) /hpf Urine WBC 0-5 (0-5) /hpf Ur Squamous Epith Cells 0-5 (0-5) /hpf Urine Bacteria Few (FEW) /hpf Urine Mucus Not seen (FEW) /hpf SARS-CoV-2 RNA (NIGEL) (NEGATIVE) Blood Type Gel Antibody Screen 10/11/20 10/11/20 10/11/20 Range/Units 07:25 07:25 07:25 WBC (3.98-10.04) K/mm3 RBC (3.98-5.22) M/mm3 Hgb (11.2-15.7) gm/dl Hct (34.1-44.9) % MCV (79.4-94.8) fl MCH (25.6-32.2) pg MCHC (32.2-35.5) g/dl RDW Std Deviation (36.4-46.3) fL Plt Count (182-369) K/mm3 MPV (9.4-12.3) fl Neut % (Auto) (34.0-71.1) % Lymph % (Auto) (19.3-51.7) % [place] % (Auto) (4.7-12.5) % Eos % (Auto) (0.7-5.8) Baso % (Auto) (0.1-1.2) % Neut # (Auto) (1.56-6.13) K/mm3 Lymph # (Auto) (1.18-3.74) K/mm3 [place] # (Auto) (0.24-0.36) K/mm3 Eos # (Auto) (0.04-0.36) K/mm3 Baso # (Auto) (0.01-0.08) K/mm3 Manual Slide Review PT 10.6 (9.7-12.0) SECONDS INR 0.99 APTT 28.2 (21.7-31.4) SECONDS Sodium (136-145) mEq/L Potassium (3.5-5.1) mEq/L Chloride (98-107) mEq/L Carbon Dioxide (21-32) mEq/L Anion Gap (5-15) BUN (7-18) mg/dL Creatinine (0.55-1.02) mg/dL Est Cr Clr Drug Dosing Estimated GFR (MDRD) (>60) mL/min BUN/Creatinine Ratio (14-18) Glucose (74-106) mg/dL Calcium (8.5-10.1) mg/dL Magnesium (1.8-2.4) mg/dl Total Bilirubin (0.2-1.0) mg/dL AST (15-37) U/L ALT (14-59) U/L Alkaline Phosphatase (46-116) U/L C-Reactive Protein (<1.0) mg/dL Total Protein (6.4-8.2) g/dl Albumin (3.4-5.0) g/dl Globulin gm/dL Albumin/Globulin Ratio (1-2) HCG, Quant 51679.0 mIU/mL Urine Color (Yellow) Urine Appearance (Clear) Urine pH (5.0-8.0) Ur Specific [place] (1.005-1.030) Urine Protein (Negative) Urine Glucose (UA) (Negative) Urine Ketones (Negative) Urine Occult Blood (Negative) Urine Nitrite (Negative) Urine Bilirubin (Negative) Urine Urobilinogen (0.2-1.0) Ur Leukocyte Esterase (Negative) Urine RBC (0-5) /hpf Urine WBC (0-5) /hpf Ur Squamous Epith Cells (0-5) /hpf Urine Bacteria (FEW) /hpf Urine Mucus (FEW) /hpf SARS-CoV-2 RNA (NIGEL) (NEGATIVE) Blood Type O POSITIVE Gel Antibody Screen Negative 10/11/20 Range/Units 07:33 WBC (3.98-10.04) K/mm3 RBC (3.98-5.22) M/mm3 Hgb (11.2-15.7) gm/dl Hct (34.1-44.9) % MCV (79.4-94.8) fl MCH (25.6-32.2) pg MCHC (32.2-35.5) g/dl RDW Std Deviation (36.4-46.3) fL Plt Count (182-369) K/mm3 MPV (9.4-12.3) fl Neut % (Auto) (34.0-71.1) % Lymph % (Auto) (19.3-51.7) % [place] % (Auto) (4.7-12.5) % Eos % (Auto) (0.7-5.8) Baso % (Auto) (0.1-1.2) % Neut # (Auto) (1.56-6.13) K/mm3 Lymph # (Auto) (1.18-3.74) K/mm3 [place] # (Auto) (0.24-0.36) K/mm3 Eos # (Auto) (0.04-0.36) K/mm3 Baso # (Auto) (0.01-0.08) K/mm3 Manual Slide Review PT (9.7-12.0) SECONDS INR APTT (21.7-31.4) SECONDS Sodium (136-145) mEq/L Potassium (3.5-5.1) mEq/L Chloride (98-107) mEq/L Carbon Dioxide (21-32) mEq/L Anion Gap (5-15) BUN (7-18) mg/dL Creatinine (0.55-1.02) mg/dL Est Cr Clr Drug Dosing Estimated GFR (MDRD) (>60) mL/min BUN/Creatinine Ratio (14-18) Glucose (74-106) mg/dL Calcium (8.5-10.1) mg/dL Magnesium (1.8-2.4) mg/dl Total Bilirubin (0.2-1.0) mg/dL AST (15-37) U/L ALT (14-59) U/L Alkaline Phosphatase (46-116) U/L C-Reactive Protein (<1.0) mg/dL Total Protein (6.4-8.2) g/dl Albumin (3.4-5.0) g/dl Globulin gm/dL Albumin/Globulin Ratio (1-2) HCG, Quant mIU/mL Urine Color (Yellow) Urine Appearance (Clear) Urine pH (5.0-8.0) Ur Specific [place] (1.005-1.030) Urine Protein (Negative) Urine Glucose (UA) (Negative) Urine Ketones (Negative) Urine Occult Blood (Negative) Urine Nitrite (Negative) Urine Bilirubin (Negative) Urine Urobilinogen (0.2-1.0) Ur Leukocyte Esterase (Negative) Urine RBC (0-5) /hpf Urine WBC (0-5) /hpf Ur Squamous Epith Cells (0-5) /hpf Urine Bacteria (FEW) /hpf Urine Mucus (FEW) /hpf SARS-CoV-2 RNA (NIGEL) Positive H (NEGATIVE) Blood Type Gel Antibody Screen Meds: Medications Generic Name Dose Route Start Last Admin Trade Name Fretim PRN Reason Stop Dose Admin Dextrose/Sodium Chloride 1,000 mls @ 500 mls/hr 10/11/20 07:15 10/11/20 07:30 Dextrose 5%-Normal Saline IV 500 mls/hr ASDIRECTED OMI Administration Discontinued Medications Generic Name Dose Route Start Last Admin Trade Name Danni PRN Reason Stop Dose Admin Diatrizoate Meglum/Diatrizoate Sod 40 ml 10/11/20 09:20 10/11/20 10:39 Gastrografin 37% PO 10/11/20 09:21 40 ml ONETIME ONE Administration Hydromorphone HCl 0.5 mg 10/11/20 07:12 10/11/20 07:28 Dilaudid IVPUSH 10/11/20 07:13 0.5 mg ONETIME ONE Administration Hydromorphone HCl 0.5 mg 10/11/20 07:54 10/11/20 07:57 Dilaudid IVPUSH 10/11/20 07:55 0.5 mg ONETIME ONE Administration Hydromorphone HCl 0.5 mg 10/11/20 08:33 10/11/20 08:35 Dilaudid IVPUSH 10/11/20 08:34 0.5 mg ONETIME ONE Administration Hydromorphone HCl 0.5 mg 10/11/20 10:09 10/11/20 10:17 Dilaudid IVPUSH 10/11/20 10:10 0.5 mg ONETIME ONE Administration Clindamycin Phosphate 900 mg/ 50 mls @ 100 mls/hr 10/11/20 09:08 10/11/20 09:17 Premix IV 10/11/20 09:37 100 mls/hr ONETIME ONE Administration Ondansetron HCl 4 mg 10/11/20 07:12 10/11/20 07:28 Zofran IVPUSH 10/11/20 07:13 4 mg ONETIME ONE Administration - Radiology Interpretation Free Text/Narrative:: 40-year-old female presents to the ED in the accompaniment of her . Patient reports development of left lower quadrant left upper/mid abdominal pain about 2100 hrs. last night. Pain has intensified overnight. She did not sleep at all. Emesis x5 of bilious emesis. Hurts to walk, hurts to ride in a vehicle. Hurts to laugh sneeze or deep breathe. On exam bowel sounds are few and far between. Abdomen is distended and tender even to percussion in the left lower quadrant and left hemiabdomen and suprapubically. She is guarding with rebound tenderness and clinically has an acute surgical abdomen with peritonitis or peritoneal irritation. Question is whether or not this is related. Rule out ectopic rule out ruptured ovarian cyst with bleeding or hemorrhage into the abdomen. Routine labs ordered. This includes a quantitative beta-hCG and type and screen. She will have ultrasound transvaginally as well ultrasound of the abdomen to confirm fluid within the abdomen. IV will be D5 normal saline at 500 mils per hour. Given Dilaudid 2.5 mg IV with Zofran 4 mg IV for pain and nausea relief. - Re-Assessments/Exams Free Text/Narrative Re-Assessment/Exam: 10/11/20 08:02 Hematology is back. White count is markedly elevated at 18.82. Differential shows 86.2% neutrophils. Hemoglobin is 12.5 with a hematocrit of 37.8. MCV is normal. Platelet count 337,000. PT is 10.6 with an INR of 0.99. PTT is 28.2. Sodium 138 with a potassium of 4.0 chloride 101 with a bicarb of 25. Anion gap is 16.0. BUN is 7 with a creatinine of 0.7 and a GFR greater than 60. Glucose 102 calcium 8.9. Magnesium 1.9. Total bilirubin is 0.4. AST is 12 with an ALT of 23. Alk phosphatase is 49. C-reactive protein elevated at 4.9. Total protein 7.6 with an albumin fraction of 3.7. Urinalysis by dip is negative for infection. Micro is pending. I will discuss case with on-call pin inserter regulator Dr. Grecia Woods 10/11/20 09:49 radiology report is available on the patient's pelvic ultrasound done transvaginally. Gestational age is estimated to be 7 weeks and 6 days which correlates with her last known menstrual period of 08/17/2020. Single intrauterine gestational sac appreciated. Small embryo was noted. No subchorionic hemorrhage is noted. Right ovary shows evidence of a cyst measuring 3.1 cm. Minimal cyst within the left ovary measuring 1.6 cm both are felt to be physiologic. No free fluid is appreciated in the pelvis. Heart rate was estimated to be 161 bpm. Free Text/Narrative Re-Assessment/Exam: 10/11/20 08:28 Quantitative hCG is 61,032. The micro on the urinalysis is normal. 10/11/20 08:45 COVID-19 screen came back positive. Transvaginal ultrasound reveals a adamson fetus dated at 7 weeks and 6 days correlating with the patient's assessment of being 8 weeks . Both ovaries contain a single cyst with no evidence of recent rupture. No significant free fluid in the cul-de-sac or pelvis. Quick ultrasound of the abdomen did not show any blood within the abdominal cavity. Therefore the patient appears to have peritonitis of another cause such or diverticulitis. 10/11/20 08:57 other history obtained from the patient reveals that she did have severe diverticulitis about 2 years ago in September. She ended up in hospital in [place] for 5 days with a peridiverticular abscess development but failed to respond to IV antibiotic therapy. She was then sent to [place] where she had a resection of about 8 inches of colon on the left side. She did have an appendectomy done at that time as well. On reexamination now point of maximal tenderness is still left lower quadrant of the abdomen with rebound and guarding with clinically significant peritonitis. She is allergic to multiple antibiotics. It appears at this time clindamycin is the safest alternative antibiotic therapy. We will start her on clindamycin 900 mg IV at this time. I will also ask the surgeon Dr. Pretty to see her in consultation as well. 10/11/20 09:[address] Pretty she feels imaging is imperative to rule out an abscess or perforation . CT abdomen to be done with oral contrast only. Discussed the risks of radiation to the fetus with both parents. The fact that she is 8 weeks means there is still risk to the fetus from radiation but is definitely less than if she was in the earlier part of . We will therefore proceed with CT of the abdomen/pelvis with oral contrast only. 10/11/20 10:11 patient is experiencing increased abdominal pain. Will repeat Dilaudid 0.5 mg IV. 10/11/20 11:02 CT scan of the abdomen pelvis has been completed with oral contrast only. Patient is known to be 8 weeks gestation confirmed by ultrasound earlier today. Visualized portions of the lungs reveal no abnormalities. Contrast is seen within the stomach as well as within the distal esophagus compatible with reflux esophagitis. Liver appears homogeneous without any intraductal dilatation. Gall bladder is present with no evidence of calcified gallstones. Pancreas is within normal limits. Spleen is normal contrast fills the stomach and portions of the small bowel. There is increased stool in the cecum and right hemicolon. There is an area of diverticulitis at the sigmoid descending colon junction with no perforation or abscess evident. Small diverticuli are appreciated within the sigmoid and descending colon. Urinary bladder appears normal. Uterus is enlarged. Both kidneys appear normal with no obstruction of the ureters. Urinary bladder appears normal. 10/11/20 11:15 Dr Hampton is here to see the patient in the ER. 10/11/20 11:49 decision has been made to admit the patient to hospital and Dr. Pretty will provide care. Admission orders placed. Departure - Departure Time of Disposition: 11:50 Disposition: Admitted As Inpatient 68 Condition: Fair Clinical Impression: First trimester , Acute abdominal pain in left lower quadrant, Diverticulitis of sigmoid colon - Discharge Information *PRESCRIPTION DRUG MONITORING PROGRAM REVIEWED*: Not Applicable *COPY OF PRESCRIPTION DRUG MONITORING REPORT IN PATIENT [place]: Not Applicable Instructions: Diverticulitis, Bimx-ld-[id number] Referrals: Hilaria Abreu NP [Primary Care Provider] - Forms: ED Department Discharge Sepsis Event Note (ED) - Evaluation Sepsis Screening Result: No Definite Risk - Focused Exam Vital Signs: Vital Signs Temp Pulse Resp BP Pulse Ox 10/11/20 06:54 36.2 C 101 H 16 107/61 100 - My Orders Last 24 Hours: My Active Orders 10/11/20 07:15 Dextrose 5%-0.9% NaCl [Dextrose 5%-Normal Saline] 1,000 ml IV ASDIRECTED 10/11/20 08:11 Consult to Physician [CONS] Stat 10/11/20 08:12 Notify Provider Consults [RC] ASDIRECTED 10/11/20 11:48 Admission Status [Patient Status] [ADT] Routine - Assessment/Plan Last 24 Hours: My Active Orders 10/11/20 07:15 Dextrose 5%-0.9% NaCl [Dextrose 5%-Normal Saline] 1,000 ml IV ASDIRECTED 10/11/20 08:11 Consult to Physician [CONS] Stat 10/11/20 08:12 Notify Provider Consults [RC] ASDIRECTED 10/11/20 11:48 Admission Status [Patient Status] [ADT] Routine
[2020-10-11] MEDS ORDERED: HYDROmorphone 0.5 MG/0.5 ML Syringe IVPUSH ONE ×4 (07:12→10:09)
[2020-10-11] MEDS ORDERED: Ondansetron 4 MG/2 ML SDV IVPUSH ONE (07:12)
[2020-10-11] MEDS ORDERED: Dextrose 5%-0.9% NaCl 1,000 ML IV SCH (07:15)
[2020-10-11] MEDS ORDERED: Clindamycin Phosphate in D5W 900 MG in Premix Bag 1 BAG IV ONE ×2 (09:08)
--- NOTE | 2020-10-11 09:09 | US ---
Limited abdominal ultrasound: Multiple real-time images of the 4 quadrants were obtained. No evidence of ascites. Index is not visualized. Impression: 1. No evidence of ascites. Diagnostic code #1
--- NOTE | 2020-10-11 09:09 | US ---
First trimester obstetrical ultrasound: Multiple real-time images were obtained transvaginally. Comparison: Previous obstetrical ultrasound study of 09/20/20. Dates: LMP: LMP given as 08/17/20, VENKAT 05/24/21, gestational age 7 weeks 6 days Current ultrasound: VENKAT 05/24/21, gestational age 7 weeks 6 days Single intrauterine gestational sac is noted. Small embryo is noted. No subchorionic hemorrhage is noted. Right ovary shows evidence of a cyst measuring 3.1 cm. Minimal cyst within the left ovary measuring 1.6 cm is seen which is likely physiologic. No free fluid is seen. Measurements: [place]-rump length: 1.49 cm - 7 weeks 6 days Heart rate: 161 bpm Impression: 1. Single intrauterine gestation. Dates as noted above. Nothing acute seen within the . 2. 3.1 cm cyst within the right ovary. Diagnostic code #2
[2020-10-11] MEDS: Diatrizoate Meglumine/Diatrizoate Sodium 37% 120 ML Bottle PO ONE ×2 (10:18→10:39)
--- NOTE | 2020-10-11 11:01 | CT ---
CT abdomen and pelvis Technique: Multiple axial sections were obtained from above the dome of the diaphragm inferiorly through the pubic symphysis. No intravenous contrast was utilized. Oral contrast is seen which remains mostly within the stomach. Reconstructed coronal and sagittal images were obtained. Comparison: Prior CT abdomen and pelvis study of 03/28/20. Findings: Visualized lung bases show very slight dependent atelectasis. Noncontrast appearance of the liver shows no focal abnormality. Contrast is seen within the stomach as well as within the distal esophagus compatible with reflux esophagitis. Spleen is normal. Adrenal glands show no nodule. Kidneys show no abnormal calcifications. Kidneys show no ureteral dilatation or ureteral stone. Pancreas shows no discrete abnormality. Gallbladder contains no calcified gallstones. Aorta shows no aneurysm. No retroperitoneal adenopathy is seen. There is inflammatory change within the left lower abdomen which surrounds a portion of the colon at the junction of the descending and sigmoid regions. Diverticuli are seen in this area and findings are compatible with diverticulitis. There is no free fluid being seen. 2.8 cm cyst noted within the right ovary. Appendix is not visualized with certainty. Impression: 1. Findings compatible with diverticulitis at the junction of the descending and sigmoid region. 2. No fluid collections are seen. 3. 2.8 cm cyst within the right ovary. 4. Contrast within the distal esophagus compatible with probable reflux esophagitis. Diagnostic code #3
--- NOTE | 2020-10-11 11:23 | PCM.HP.2 ---
H&P History of Present Illness - General Date of Service: 10/11/20 Source of Information: Patient, Provider History Limitations: Reports: No Limitations - History of Present Illness Initial Comments - Free Text/Narative: The patient is a 40 y/o lady who is 8wks who presents with three days of worsening abdominal pain. She reports this felt similar to her other episodes of diverticulitis. She had her most recent BM this am, which was painful. She also reports having two episodes of emesis this am, non-bloody and non-bilious. She denies any hematochezia. Abdomen Pain Score (Numeric/FACES): 8 - Related Data Allergies/Adverse Reactions: Allergies Allergy/AdvReac Type Severity Reaction Status Date / Time Cephalosporins Allergy Rash Verified 10/11/20 11:20 Penicillins Allergy Rash Verified 10/11/20 07:00 Sulfa (Sulfonamide Allergy Rash Verified 10/11/20 07:00 Antibiotics) erthyromycin Allergy Rash Uncoded 09/20/20 17:15 Home Medications: Home Meds Acyclovir 0 mg PO ASDIRECTED 08/20/19 [History] Pantoprazole [ProTONIX] 40 mg PO DAILY 08/20/19 [History] Vit No.129/Iron/FA [ Tablet] 1 each PO DAILY 09/20/20 [History] Past Medical History - Past Health History Medical/Surgical History: Denies Medical/Surgical History Cardiovascular History: Reports: None Respiratory History: Reports: None Gastrointestinal History: Reports: Diverticulosis, GERD, Other (See Below) Other Gastrointestinal History: Colon Abscess--patient developed severe diverticulitis 2 years ago and developed a very difficult diverticular abscess that was not responding to antibiotic therapy for 5 days. She was thus taken to surgery with resection of 8 inches of colon in [place]. At that time they also did take out her appendix. 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 Musculoskeletal History: Reports: None Neurological History: Reports: None Psychiatric History: Reports: None Endocrine/Metabolic History: Reports: None Hematologic History: Reports: None Immunologic History: Reports: None Oncologic (Cancer) History: Reports: None Dermatologic History: Reports: None - Infectious Disease History Infectious Disease History: Reports: None - Past Surgical History HEENT Surgical History: Reports: Tonsillectomy GI Surgical History: Reports: Appendectomy, Other (See Below) Other GI Surgeries/Procedures: Pt had colon resection in October 2018. Social & Family History - Family History Cardiac: Reports: [place] Endocrine/Metabolic: Reports: Diabetes, type II, Hypothyroidism Oncologic: Reports: Breast, Esophageal, Lymphoma, Skin - Tobacco Use Tobacco Use Status *Q: Unknown Ever Used Tobacco - Caffeine Use Caffeine Use: Reports: Coffee - Living Situation & Occupation Living situation: Reports: Occupation: Employed H&P Review of Systems - Review of Systems: Review Of Systems: See Below General: Denies: Fever HEENT: Reports: No Symptoms Pulmonary: Reports: No Symptoms Cardiovascular: Reports: No Symptoms Gastrointestinal: Reports: Abdominal Pain. Denies: Anorexia, Diarrhea, Hematochezia, Melena Genitourinary: Reports: No Symptoms Musculoskeletal: Reports: No Symptoms Skin: Reports: No Symptoms Psychiatric: Reports: No Symptoms Neurological: Reports: No Symptoms Hematologic/Lymphatic: Reports: No Symptoms Exam - Exam Exam: See Below - Vital Signs Vital Signs: Last Vital Signs Temp 36.2 C 10/11/20 06:54 Pulse 101 H 10/11/20 06:54 Resp 16 10/11/20 06:54 BP 107/61 10/11/20 06:54 Pulse Ox 100 10/11/20 06:54 - Exam Quality Assessment: No: Supplemental Oxygen General: Alert, Oriented HEENT: Conjunctiva Clear, EOMI Neck: Supple Lungs: Clear to Auscultation, Normal Respiratory Effort Cardiovascular: Regular Rate, Regular Rhythm GI/Abdominal Exam: Soft, Rebound (in LLQ), Tender (in the right hemiabdomen and LLQ) Extremities: Normal Inspection, No Pedal Edema Peripheral Pulses: 2+: Dorsalis Pedis (L), Dorsalis Pedis (R) Skin: Warm, Dry, Intact Neurological: Cranial Nerves Intact Neuro Extensive - Mental Status: Oriented x3, Normal Mood/Affect - Patient Data Lab Results Last 24 hrs: Laboratory Results - last 24 hr 10/11/20 10/11/20 10/11/20 Range/Units 07:20 07:25 07:25 WBC 18.82 H (3.98-10.04) K/mm3 RBC 4.44 (3.98-5.22) M/mm3 Hgb 12.5 (11.2-15.7) gm/dl Hct 37.8 (34.1-44.9) % MCV 85.1 (79.4-94.8) fl MCH 28.2 (25.6-32.2) pg MCHC 33.1 (32.2-35.5) g/dl RDW Std Deviation 40.8 (36.4-46.3) fL Plt Count 337 (182-369) K/mm3 MPV 9.1 L (9.4-12.3) fl Neut % (Auto) 86.2 H (34.0-71.1) % Lymph % (Auto) 7.3 L (19.3-51.7) % [place] % (Auto) 5.8 (4.7-12.5) % Eos % (Auto) 0.3 L (0.7-5.8) Baso % (Auto) 0.1 (0.1-1.2) % Neut # (Auto) 16.22 H (1.56-6.13) K/mm3 Lymph # (Auto) 1.38 (1.18-3.74) K/mm3 [place] # (Auto) 1.10 H (0.24-0.36) K/mm3 Eos # (Auto) 0.05 (0.04-0.36) K/mm3 Baso # (Auto) 0.02 (0.01-0.08) K/mm3 Manual Slide Review Abnormal smear PT (9.7-12.0) SECONDS INR APTT (21.7-31.4) SECONDS Sodium 138 (136-145) mEq/L Potassium 4.0 (3.5-5.1) mEq/L Chloride 101 (98-107) mEq/L Carbon Dioxide 25 (21-32) mEq/L Anion Gap 16.0 H (5-15) BUN 7 (7-18) mg/dL Creatinine 0.7 (0.55-1.02) mg/dL Est Cr Clr Drug Dosing TNP Estimated GFR (MDRD) > 60 (>60) mL/min BUN/Creatinine Ratio 10.0 L (14-18) Glucose 102 (74-106) mg/dL Calcium 8.9 (8.5-10.1) mg/dL Magnesium 1.9 (1.8-2.4) mg/dl Total Bilirubin 0.4 (0.2-1.0) mg/dL AST 12 L (15-37) U/L ALT 23 (14-59) U/L Alkaline Phosphatase 49 (46-116) U/L C-Reactive Protein 4.9 H* (<1.0) mg/dL Total Protein 7.6 (6.4-8.2) g/dl Albumin 3.7 (3.4-5.0) g/dl Globulin 3.9 gm/dL Albumin/Globulin Ratio 1.0 (1-2) HCG, Quant mIU/mL Urine Color Yellow (Yellow) Urine Appearance Clear (Clear) Urine pH 6.0 (5.0-8.0) Ur Specific [place] > or = 1.030 (1.005-1.030) Urine Protein Negative (Negative) Urine Glucose (UA) Negative (Negative) Urine Ketones Negative (Negative) Urine Occult Blood Negative (Negative) Urine Nitrite Negative (Negative) Urine Bilirubin Negative (Negative) Urine Urobilinogen 0.2 (0.2-1.0) Ur Leukocyte Esterase Negative (Negative) Urine RBC Not seen (0-5) /hpf Urine WBC 0-5 (0-5) /hpf Ur Squamous Epith Cells 0-5 (0-5) /hpf Urine Bacteria Few (FEW) /hpf Urine Mucus Not seen (FEW) /hpf SARS-CoV-2 RNA (NIGEL) (NEGATIVE) Blood Type Gel Antibody Screen 10/11/20 10/11/20 10/11/20 Range/Units 07:25 07:25 07:25 WBC (3.98-10.04) K/mm3 RBC (3.98-5.22) M/mm3 Hgb (11.2-15.7) gm/dl Hct (34.1-44.9) % MCV (79.4-94.8) fl MCH (25.6-32.2) pg MCHC (32.2-35.5) g/dl RDW Std Deviation (36.4-46.3) fL Plt Count (182-369) K/mm3 MPV (9.4-12.3) fl Neut % (Auto) (34.0-71.1) % Lymph % (Auto) (19.3-51.7) % [place] % (Auto) (4.7-12.5) % Eos % (Auto) (0.7-5.8) Baso % (Auto) (0.1-1.2) % Neut # (Auto) (1.56-6.13) K/mm3 Lymph # (Auto) (1.18-3.74) K/mm3 [place] # (Auto) (0.24-0.36) K/mm3 Eos # (Auto) (0.04-0.36) K/mm3 Baso # (Auto) (0.01-0.08) K/mm3 Manual Slide Review PT 10.6 (9.7-12.0) SECONDS INR 0.99 APTT 28.2 (21.7-31.4) SECONDS Sodium (136-145) mEq/L Potassium (3.5-5.1) mEq/L Chloride (98-107) mEq/L Carbon Dioxide (21-32) mEq/L Anion Gap (5-15) BUN (7-18) mg/dL Creatinine (0.55-1.02) mg/dL Est Cr Clr Drug Dosing Estimated GFR (MDRD) (>60) mL/min BUN/Creatinine Ratio (14-18) Glucose (74-106) mg/dL Calcium (8.5-10.1) mg/dL Magnesium (1.8-2.4) mg/dl Total Bilirubin (0.2-1.0) mg/dL AST (15-37) U/L ALT (14-59) U/L Alkaline Phosphatase (46-116) U/L C-Reactive Protein (<1.0) mg/dL Total Protein (6.4-8.2) g/dl Albumin (3.4-5.0) g/dl Globulin gm/dL Albumin/Globulin Ratio (1-2) HCG, Quant 41392.0 mIU/mL Urine Color (Yellow) Urine Appearance (Clear) Urine pH (5.0-8.0) Ur Specific [place] (1.005-1.030) Urine Protein (Negative) Urine Glucose (UA) (Negative) Urine Ketones (Negative) Urine Occult Blood (Negative) Urine Nitrite (Negative) Urine Bilirubin (Negative) Urine Urobilinogen (0.2-1.0) Ur Leukocyte Esterase (Negative) Urine RBC (0-5) /hpf Urine WBC (0-5) /hpf Ur Squamous Epith Cells (0-5) /hpf Urine Bacteria (FEW) /hpf Urine Mucus (FEW) /hpf SARS-CoV-2 RNA (NIGEL) (NEGATIVE) Blood Type O POSITIVE Gel Antibody Screen Negative 10/11/20 Range/Units 07:33 WBC (3.98-10.04) K/mm3 RBC (3.98-5.22) M/mm3 Hgb (11.2-15.7) gm/dl Hct (34.1-44.9) % MCV (79.4-94.8) fl MCH (25.6-32.2) pg MCHC (32.2-35.5) g/dl RDW Std Deviation (36.4-46.3) fL Plt Count (182-369) K/mm3 MPV (9.4-12.3) fl Neut % (Auto) (34.0-71.1) % Lymph % (Auto) (19.3-51.7) % [place] % (Auto) (4.7-12.5) % Eos % (Auto) (0.7-5.8) Baso % (Auto) (0.1-1.2) % Neut # (Auto) (1.56-6.13) K/mm3 Lymph # (Auto) (1.18-3.74) K/mm3 [place] # (Auto) (0.24-0.36) K/mm3 Eos # (Auto) (0.04-0.36) K/mm3 Baso # (Auto) (0.01-0.08) K/mm3 Manual Slide Review PT (9.7-12.0) SECONDS INR APTT (21.7-31.4) SECONDS Sodium (136-145) mEq/L Potassium (3.5-5.1) mEq/L Chloride (98-107) mEq/L Carbon Dioxide (21-32) mEq/L Anion Gap (5-15) BUN (7-18) mg/dL Creatinine (0.55-1.02) mg/dL Est Cr Clr Drug Dosing Estimated GFR (MDRD) (>60) mL/min BUN/Creatinine Ratio (14-18) Glucose (74-106) mg/dL Calcium (8.5-10.1) mg/dL Magnesium (1.8-2.4) mg/dl Total Bilirubin (0.2-1.0) mg/dL AST (15-37) U/L ALT (14-59) U/L Alkaline Phosphatase (46-116) U/L C-Reactive Protein (<1.0) mg/dL Total Protein (6.4-8.2) g/dl Albumin (3.4-5.0) g/dl Globulin gm/dL Albumin/Globulin Ratio (1-2) HCG, Quant mIU/mL Urine Color (Yellow) Urine Appearance (Clear) Urine pH (5.0-8.0) Ur Specific [place] (1.005-1.030) Urine Protein (Negative) Urine Glucose (UA) (Negative) Urine Ketones (Negative) Urine Occult Blood (Negative) Urine Nitrite (Negative) Urine Bilirubin (Negative) Urine Urobilinogen (0.2-1.0) Ur Leukocyte Esterase (Negative) Urine RBC (0-5) /hpf Urine WBC (0-5) /hpf Ur Squamous Epith Cells (0-5) /hpf Urine Bacteria (FEW) /hpf Urine Mucus (FEW) /hpf SARS-CoV-2 RNA (NIGEL) Positive H (NEGATIVE) Blood Type Gel Antibody Screen Result Diagrams: 10/11/20 07:25 10/11/20 07:25 Sepsis Event Note - Evaluation Sepsis Screening Result: No Definite Risk - Focused Exam Vital Signs: Vital Signs Temp Pulse Resp BP Pulse Ox 10/11/20 06:54 36.2 C 101 H 16 107/61 100 *Q Meaningful Use (ADM) - VTE Risk Assess *Q Each Risk Factor Represents 1 Point: or , Less than 1 Month Total Score 1 Point Risk Factors: 1 - Problem List (1) Diverticulitis of sigmoid colon SNOMED Code(s): 093164237 ICD Code: K57.32 - DVTRCLI OF LG INT W/O PERFORATION OR ABSCESS W/O BLEEDING Status: Acute Current Visit: Yes (2) First trimester SNOMED Code(s): 88797595 ICD Code: Z34.91 - ENCNTR FOR SUPRVSN OF NORMAL PREG, UNSP, FIRST TRIMESTER Status: Acute Current Visit: Yes Problem List Initiated/Reviewed/Updated: Yes Orders Last 24hrs: Active Orders 24 hr Category Date Time Status Notify Provider Consults [RC] ASDIRECTED Care 10/11/20 08:12 Active Consult to Physician [CONS] Stat Cons 10/11/20 08:11 Active Dextrose 5%-0.9% NaCl [Dextrose 5%-Normal Saline] 1,000 Med 10/11/20 07:15 Active ml IV ASDIRECTED Medication Orders Dextrose/Sodium Chloride (Dextrose 5%-Normal Saline) 1,000 mls @ 500 mls/hr IV ASDIRECTED OMI Last Admin: 10/11/20 07:30 Dose: 500 mls/hr Documented by: MEGHANA Assessment/Plan Comment:: 40 y/o lady with diverticulitis in - NPO with IVF resuscitation - IV abx with clindamycin - trend WBC - will monitor I's and O's and fever Sanjuanita Chavis MD General Surgery - Mortality Measure Prognosis:: Good
[2020-10-11] MEDS ORDERED: Promethazine 25 MG Tab PO PRN (13:02)
[2020-10-11] MEDS: Acetaminophen/HYDROcodone 325-5 MG Tab PO PRN ×2 (13:37→18:23)
[2020-10-11] MEDS: Lactated Ringers 1,000 ML IV SCH ×2 (13:39→21:49)
[2020-10-11] MEDS: Clindamycin Phosphate in D5W 900 MG in Premix Bag 1 BAG IV SCH ×2 (17:44)
[2020-10-11] MEDS: HYDROmorphone 0.5 MG/0.5 ML Syringe IVPUSH PRN (21:54)
[2020-10-12] MEDS: Acetaminophen/HYDROcodone 325-5 MG Tab PO PRN ×3 (02:56→20:54)
[2020-10-12] MEDS: Clindamycin Phosphate in D5W 900 MG in Premix Bag 1 BAG IV SCH ×6 (02:58→17:35)
[2020-10-12] MEDS: Lactated Ringers 1,000 ML IV SCH (05:52)
[2020-10-12] MEDS: HYDROmorphone 0.5 MG/0.5 ML Syringe IVPUSH PRN (09:05)
--- NOTE | 2020-10-12 10:05 | PCM.SURGPN ---
- General Info Date of Service: 10/12/20 Admission Diagnosis/Problem: Diverticulitis Functional Status: Reports: Pain Controlled, Ambulating, Urinating, Other (no nausea. pain improved from yesterday) - Patient Data Vitals - Most Recent: Last Vital Signs Temp 36.7 C 10/12/20 08:23 Pulse 88 10/12/20 08:23 Resp 20 10/12/20 08:23 BP 102/57 L 10/12/20 08:23 Pulse Ox 98 10/12/20 08:23 Weight - Most Recent: 92.034 kg I&O - Last 24 Hours: Intake & Output 10/11/20 10/12/20 10/12/20 22:59 06:59 14:59 Intake Total 1791 Output Total 1000 Balance 791 Lab Results Last 24 Hrs: Laboratory Results - last 24 hr 10/12/20 10/12/20 Range/Units 04:55 04:55 WBC 11.66 H (3.98-10.04) K/mm3 RBC 3.59 L (3.98-5.22) M/mm3 Hgb 10.0 L D (11.2-15.7) gm/dl Hct 31.2 L (34.1-44.9) % MCV 86.9 (79.4-94.8) fl MCH 27.9 (25.6-32.2) pg MCHC 32.1 L (32.2-35.5) g/dl RDW Std Deviation 41.9 (36.4-46.3) fL Plt Count 257 D (182-369) K/mm3 MPV 9.3 L (9.4-12.3) fl Neut % (Auto) 78.3 H (34.0-71.1) % Lymph % (Auto) 11.9 L (19.3-51.7) % [place] % (Auto) 9.0 (4.7-12.5) % Eos % (Auto) 0.4 L (0.7-5.8) Baso % (Auto) 0.1 (0.1-1.2) % Neut # (Auto) 9.13 H (1.56-6.13) K/mm3 Lymph # (Auto) 1.39 (1.18-3.74) K/mm3 [place] # (Auto) 1.05 H (0.24-0.36) K/mm3 Eos # (Auto) 0.05 (0.04-0.36) K/mm3 Baso # (Auto) 0.01 (0.01-0.08) K/mm3 Sodium 141 (136-145) mEq/L Potassium 3.5 (3.5-5.1) mEq/L Chloride 106 (98-107) mEq/L Carbon Dioxide 24 (21-32) mEq/L Anion Gap 14.5 (5-15) BUN 5 L (7-18) mg/dL Creatinine 0.6 (0.55-1.02) mg/dL Est Cr Clr Drug Dosing 128.24 mL/min Estimated GFR (MDRD) > 60 (>60) mL/min BUN/Creatinine Ratio 8.3 L (14-18) Glucose 84 (74-106) mg/dL Calcium 8.1 L (8.5-10.1) mg/dL Phosphorus 3.6 (2.6-4.7) mg/dL Magnesium 2.0 (1.8-2.4) mg/dl Med Orders - Current: Current Medications Hydrocodone Bitart/Acetaminophen (Bab[place] 325-5 Mg) 1 tab PO Q4H PRN PRN Reason: Pain (moderate 4-6) Last Admin: 10/12/20 02:56 Dose: 1 tab Documented by: Hydromorphone HCl (Dilaudid) 0.5 mg IVPUSH Q2H PRN PRN Reason: Pain (severe 7-10) Last Admin: 10/12/20 09:05 Dose: 0.5 mg Documented by: Clindamycin Phosphate 900 mg/ (Premix) 50 mls @ 100 mls/hr IV Q8H [facility] Stop: 10/14/20 17:31 Last Admin: 10/12/20 08:54 Dose: 100 mls/hr Documented by: Potassium Chloride/Dextrose/Sod Cl (D5 1/2 Ns W/ 20 Meq/L Kcl) 1,000 mls @ 100 mls/hr IV ASDIRECTED [facility] Pantoprazole Sodium (Protonix) 40 mg PO DAILY [facility] Promethazine HCl (Phenergan) 25 mg PO Q6H PRN PRN Reason: Nausea/Vomiting Discontinued Medications Diatrizoate Meglum/Diatrizoate Sod (Gastrografin 37%) 40 ml PO ONETIME ONE Stop: 10/11/20 09:21 Last Admin: 10/11/20 10:39 Dose: 40 ml Documented by: Hydromorphone HCl (Dilaudid) 0.5 mg IVPUSH ONETIME ONE Stop: 10/11/20 07:13 Last Admin: 10/11/20 07:28 Dose: 0.5 mg Documented by: Hydromorphone HCl (Dilaudid) 0.5 mg IVPUSH ONETIME ONE Stop: 10/11/20 07:55 Last Admin: 10/11/20 07:57 Dose: 0.5 mg Documented by: Hydromorphone HCl (Dilaudid) 0.5 mg IVPUSH ONETIME ONE Stop: 10/11/20 08:34 Last Admin: 10/11/20 08:35 Dose: 0.5 mg Documented by: Hydromorphone HCl (Dilaudid) 0.5 mg IVPUSH ONETIME ONE Stop: 10/11/20 10:10 Last Admin: 10/11/20 10:17 Dose: 0.5 mg Documented by: Dextrose/Sodium Chloride (Dextrose 5%-Normal Saline) 1,000 mls @ 500 mls[facility] Last Admin: 10/11/20 07:30 Dose: 500 mls/hr Documented by: Clindamycin Phosphate 900 mg/ (Premix) 50 mls @ 100 mls/hr IV ONETIME ONE Stop: 10/11/20 09:37 Last Admin: 10/11/20 09:17 Dose: 100 mls/hr Documented by: Lactated Ringer's (Ringers, Lactated) 1,000 mls @ 125 mls[facility]hr [facility] Last Admin: 10/12/20 05:52 Dose: 125 mls/hr Documented by: Ondansetron HCl (Zofran) 4 mg IVPUSH ONETIME ONE Stop: 10/11/20 07:13 Last Admin: 10/11/20 07:28 Dose: 4 mg Documented by: - Exam General: Alert, Oriented HEENT: Pupils Equal, EOMI Lungs: Normal Respiratory Effort GI/Abdominal Exam: No Distention, Tender (in the bilateral lower quadrants LLQ > RLQ) Sepsis Event Note - Evaluation Sepsis Screening Result: No Definite Risk - Focused Exam Vital Signs: Vital Signs Temp Pulse Resp BP Pulse Ox 10/12/20 08:23 36.7 C 88 20 102/57 L 98 10/12/20 03:36 37.5 C 91 110/52 L 97 10/12/20 00:53 36.8 C 88 20 94/57 L 96 - Problem List & Annotations (1) Diverticulitis of sigmoid colon SNOMED Code(s): 188340033 Code(s): K57.32 - DVTRCLI OF LG INT W/O PERFORATION OR ABSCESS W/O BLEEDING Status: Acute Current Visit: Yes (2) First trimester SNOMED Code(s): 42093100 Code(s): Z34.91 - ENCNTR FOR SUPRVSN OF NORMAL PREG, UNSP, FIRST TRIMESTER Status: Acute Current Visit: Yes - Problem List Review Problem List Initiated/Reviewed/Updated: Yes - My Orders Last 24 Hours: Active Orders 24 hr Category Date Time Status Admission Status [Patient Status] [ADT] Routine ADT 10/11/20 11:48 Active Patient Status [ADT] Routine ADT 10/11/20 13:02 Active Antiembolic Devices [RC] PER UNIT ROUTINE Care 10/11/20 13:05 Active Intake and Output [RC] 04,16 Care 10/11/20 13:03 Active Oxygen Therapy [RC] PRN Care 10/11/20 13:02 Active Up ad Meg [RC] ASDIRECTED Care 10/11/20 13:02 Active VTE/DVT Education [RC] PER UNIT ROUTINE Care 10/11/20 13:02 Active Vital Signs [RC] 10,16,22,04 Care 10/11/20 13:02 Active Nothing per Oral Now Diet [DIET] Diet 10/11/20 Lunch Active BASIC METABOLIC PANEL,BMP [CHEM] AM Lab 10/13/20 05:11 Ordered BASIC METABOLIC PANEL,BMP [CHEM] AM Lab 10/14/20 05:11 Ordered CBC WITH AUTO DIFF [HEME] AM Lab 10/13/20 05:11 Ordered CBC WITH AUTO DIFF [HEME] AM Lab 10/14/20 05:11 Ordered MAGNESIUM [CHEM] AM Lab 10/13/20 05:11 Ordered PHOSPHORUS [CHEM] AM Lab 10/13/20 05:11 Ordered Acetaminophen/HYDROcodone [Babylon 325-5 MG] Med 10/11/20 13:02 Active 1 tab PO Q4H PRN Clindamycin Phosphate in D5W [Cleocin in D5W 900 MG/50 Med 10/11/20 17:30 Active ML] 900 mg Premix Bag 1 bag IV Q8H Dextrose 5%-1/2 Normal Saline with KCl 20 mEq @ 100 mL/ Med 10/12/20 10:15 Ordered Hr (1000 mL) D5 1/2 NS w/ 20 mEq/L KCl 1,000 ml IV ASDIRECTED HYDROmorphone [Dilaudid] Med 10/11/20 13:02 Active 0.5 mg IVPUSH Q2H PRN Pantoprazole [ProTONIX] Med 10/12/20 10:15 Ordered 40 mg PO DAILY Promethazine [Phenergan] Med 10/11/20 13:02 Active 25 mg PO Q6H PRN Sequential Compression Device [OM.PC] Per Unit Routine Oth 10/11/20 13:03 Ordered Resuscitation Status Routine Resus Stat 10/11/20 13:02 Ordered Medication Orders Hydrocodone Bitart/Acetaminophen ([place] 325-5 Mg) 1 tab PO Q4H PRN PRN Reason: Pain (moderate 4-6) Last Admin: 10/12/20 02:56 Dose: 1 tab Documented by: Admin: 10/11/20 18:23 Dose: 1 tab Documented by: Admin: 10/11/20 13:37 Dose: 1 tab Documented by: JONATHAN Hydromorphone HCl (Dilaudid) 0.5 mg IVPUSH Q2H PRN PRN Reason: Pain (severe 7-10) Last Admin: 10/12/20 09:05 Dose: 0.5 mg Documented by: JUAN DANIEL Admin: 10/11/20 21:54 Dose: 0.5 mg Documented by: CIERRA Clindamycin Phosphate 900 mg/ (Premix) 50 mls @ 100 mls/hr IV Q8H OMI Stop: 10/14/20 17:31 Last Admin: 10/12/20 08:54 Dose: 100 mls/hr Documented by: JUAN DANIEL Infusion: 10/12/20 03:28 Dose: 100 mls/hr Documented by: JUAN DANIEL Admin: 10/12/20 02:58 Dose: 100 mls/hr Documented by: Infusion: 10/11/20 18:14 Dose: 100 mls/hr Documented by: Admin: 10/11/20 17:44 Dose: 100 mls/hr Documented by: JONATHAN Potassium Chloride/Dextrose/Sod Cl (D5 1/2 Ns W/ 20 Meq/L Kcl) 1,000 mls @ 100 mls/hr IV ASDIRECTED OMI Pantoprazole Sodium (Protonix) 40 mg PO DAILY OMI Promethazine HCl (Phenergan) 25 mg PO Q6H PRN PRN Reason: Nausea/Vomiting - Assessment Assessment (Free Text/Narrative):: 40 y/o female with diverticulitis in first trimester of . Status improved - Plan Plan (Free Text/Narrative):: - continue IV clindamycin - Change IVF to D5 1/2 NS + 20KCl @100 - december start sips of clears - start miralax for constipation - restart home medication: pantoprazole Sanjuanita Pretty MD General surgery
[2020-10-12] MEDS: Polyethylene Glycol 3350 Powder 17 GM Packet PO SCH (11:03)
[2020-10-12] MEDS: D5 1/2 NS w/ 20 mEq/L KCl 1,000 ML IV SCH ×2 (11:03→20:54)
[2020-10-12] MEDS: Pantoprazole 40 MG Tab.CR PO SCH (11:03)
[2020-10-13] MEDS: Clindamycin Phosphate in D5W 900 MG in Premix Bag 1 BAG IV SCH ×4 (02:34→08:54)
[2020-10-13] MEDS: Acetaminophen/HYDROcodone 325-5 MG Tab PO PRN (04:59)
[2020-10-13] MEDS: Pantoprazole 40 MG Tab.CR PO SCH (04:59)
[2020-10-13] MEDS: D5 1/2 NS w/ 20 mEq/L KCl 1,000 ML IV SCH (07:10)
--- NOTE | 2020-10-13 07:39 | PCM.SURGPN ---
- General Info Date of Service: 10/13/20 Admission Diagnosis/Problem: Diverticulitis Functional Status: Reports: Pain Controlled, Tolerating Diet, Urinating - Patient Data Vitals - Most Recent: Last Vital Signs Temp 36.9 C 10/13/20 03:13 Pulse 85 10/13/20 03:13 Resp 16 10/13/20 03:13 BP 93/58 L 10/13/20 04:58 Pulse Ox 97 10/13/20 03:13 Weight - Most Recent: 92.034 kg I&O - Last 24 Hours: Intake & Output 10/12/20 10/13/20 10/13/20 22:59 06:59 14:59 Intake Total 2548 1110 Output Total 2750 Balance -202 1110 Lab Results Last 24 Hrs: Laboratory Results - last 24 hr 10/13/20 10/13/20 Range/Units 05:24 05:24 WBC 8.97 (3.98-10.04) K/mm3 RBC 3.48 L (3.98-5.22) M/mm3 Hgb 9.6 L (11.2-15.7) gm/dl Hct 30.2 L (34.1-44.9) % MCV 86.8 (79.4-94.8) fl MCH 27.6 (25.6-32.2) pg MCHC 31.8 L (32.2-35.5) g/dl RDW Std Deviation 41.9 (36.4-46.3) fL Plt Count 266 (182-369) K/mm3 MPV 9.4 (9.4-12.3) fl Neut % (Auto) 67.5 (34.0-71.1) % Lymph % (Auto) 20.4 (19.3-51.7) % [place] % (Auto) 10.5 (4.7-12.5) % Eos % (Auto) 1.3 (0.7-5.8) Baso % (Auto) 0.1 (0.1-1.2) % Neut # (Auto) 6.05 (1.56-6.13) K/mm3 Lymph # (Auto) 1.83 (1.18-3.74) K/mm3 [place] # (Auto) 0.94 H (0.24-0.36) K/mm3 Eos # (Auto) 0.12 (0.04-0.36) K/mm3 Baso # (Auto) 0.01 (0.01-0.08) K/mm3 Sodium 141 (136-145) mEq/L Potassium 3.5 (3.5-5.1) mEq/L Chloride 107 (98-107) mEq/L Carbon Dioxide 22 (21-32) mEq/L Anion Gap 15.5 H (5-15) BUN 3 L (7-18) mg/dL Creatinine 0.6 (0.55-1.02) mg/dL Est Cr Clr Drug Dosing 128.24 mL/min Estimated GFR (MDRD) > 60 (>60) mL/min BUN/Creatinine Ratio 5.0 L (14-18) Glucose 96 (74-106) mg/dL Calcium 8.1 L (8.5-10.1) mg/dL Phosphorus 3.8 (2.6-4.7) mg/dL Magnesium 2.1 (1.8-2.4) mg/dl Med Orders - Current: Current Medications Hydrocodone Bitart/Acetaminophen ([place] 325-5 Mg) 1 tab PO Q4H PRN PRN Reason: Pain (moderate 4-6) Last Admin: 10/13/20 04:59 Dose: 1 tab Documented by: Hydromorphone HCl (Dilaudid) 0.5 mg IVPUSH Q2H PRN PRN Reason: Pain (severe 7-10) Last Admin: 10/12/20 09:05 Dose: 0.5 mg Documented by: Clindamycin Phosphate 900 mg/ (Premix) 50 mls @ 100 mls/hr IV Q8H [facility] Stop: 10/14/20 17:31 Last Admin: 10/13/20 02:34 Dose: 100 mls/hr Documented by: Potassium Chloride/Dextrose/Sod Cl (D5 1/2 Ns W/ 20 Meq/L Kcl) 1,000 mls @ 100 mls/hr IV ASDIRECTED [facility] Last Admin: 10/13/20 07:10 Dose: 100 mls/hr Documented by: Pantoprazole Sodium (Protonix) 40 mg PO ACBREAKFAST [facility] Last Admin: 10/13/20 04:59 Dose: 40 mg Documented by: Polyethylene Glycol (Miralax) 17 gm PO DAILY [facility] Last Admin: 10/12/20 11:03 Dose: 17 gm Documented by: Promethazine HCl (Phenergan) 25 mg PO Q6H PRN PRN Reason: Nausea/Vomiting Discontinued Medications Diatrizoate Meglum/Diatrizoate Sod (Gastrografin 37%) 40 ml PO ONETIME ONE Stop: 10/11/20 09:21 Last Admin: 10/11/20 10:39 Dose: 40 ml Documented by: Hydromorphone HCl (Dilaudid) 0.5 mg IVPUSH ONETIME ONE Stop: 10/11/20 07:13 Last Admin: 10/11/20 07:28 Dose: 0.5 mg Documented by: Hydromorphone HCl (Dilaudid) 0.5 mg IVPUSH ONETIME ONE Stop: 10/11/20 07:55 Last Admin: 10/11/20 07:57 Dose: 0.5 mg Documented by: Hydromorphone HCl (Dilaudid) 0.5 mg IVPUSH ONETIME ONE Stop: 10/11/20 08:34 Last Admin: 10/11/20 08:35 Dose: 0.5 mg Documented by: Hydromorphone HCl (Dilaudid) 0.5 mg IVPUSH ONETIME ONE Stop: 10/11/20 10:10 Last Admin: 10/11/20 10:17 Dose: 0.5 mg Documented by: Dextrose/Sodium Chloride (Dextrose 5%-Normal Saline) 1[facility]000 [facility] Admin: 10/11/20 07:30 Dose: 500 mls/hr Documented by: Clindamycin Phosphate 900 mg/ (Premix) 50 mls @ 100 mls/hr IV ONETIME ONE Stop: 10/11/20 09:37 Last Admin: 10/11/20 09:17 Dose: 100 mls/hr Documented by: Lactated Ringer's (Ringers, Lactated) 1,000 mls [facility] 125 [facility] Last Admin: 10/12/20 05:52 Dose: 125 mls/hr Documented by: Ondansetron HCl (Zofran) 4 mg IVPUSH ONETIME ONE Stop: 10/11/20 07:13 Last Admin: 10/11/20 07:28 Dose: 4 mg Documented by: - Exam Quality Assessment: No: Supplemental Oxygen General: Alert, Oriented Lungs: Normal Respiratory Effort GI/Abdominal Exam: Soft, Tender (mild in BLQ) Sepsis Event Note - Evaluation Sepsis Screening Result: No Definite Risk - Focused Exam Vital Signs: Vital Signs Temp Pulse Resp BP Pulse Ox 10/13/20 04:58 93/58 L 10/13/20 03:13 36.9 C 85 16 91/52 L 97 10/12/20 20:52 36.9 C 91 16 104/59 L 100 - Problem List & Annotations (1) Diverticulitis of sigmoid colon SNOMED Code(s): 135544299 Code(s): K57.32 - DVTRCLI OF LG INT W/O PERFORATION OR ABSCESS W/O BLEEDING Status: Acute Current Visit: Yes (2) First trimester SNOMED Code(s): 05594366 Code(s): Z34.91 - ENCNTR FOR SUPRVSN OF NORMAL PREG, UNSP, FIRST TRIMESTER Status: Acute Current Visit: Yes - Problem List Review Problem List Initiated/Reviewed/Updated: Yes - My Orders Last 24 Hours: Active Orders 24 hr Category Date Time Status Regular Diet [DIET] Diet 10/13/20 Breakfast Ordered CBC WITH AUTO DIFF [HEME] AM Lab 10/14/20 05:11 Ordered D5 1/2 NS w/ 20 mEq/L KCl 1,000 ml Med 10/12/20 10:15 Active IV ASDIRECTED Pantoprazole [ProTONIX] Med 10/12/20 10:15 Active 40 mg PO ACBREAKFAST polyethylene glycoL 3350 [MiraLAX] Med 10/12/20 10:30 Active 17 gm PO DAILY Medication Orders Hydrocodone Bitart/Acetaminophen ([place] 325-5 Mg) 1 tab PO Q4H PRN PRN Reason: Pain (moderate 4-6) Last Admin: 10/13/20 04:59 Dose: 1 tab Documented by: Admin: 10/12/20 20:54 Dose: 1 tab Documented by: Admin: 10/12/20 13:59 Dose: 1 tab Documented by: JUAN DANIEL Admin: 10/12/20 02:56 Dose: 1 tab Documented by: Admin: 10/11/20 18:23 Dose: 1 tab Documented by: Admin: 10/11/20 13:37 Dose: 1 tab Documented by: JONATHAN Hydromorphone HCl (Dilaudid) 0.5 mg IVPUSH Q2H PRN PRN Reason: Pain (severe 7-10) Last Admin: 10/12/20 09:05 Dose: 0.5 mg Documented by: JUAN DANIEL Admin: 10/11/20 21:54 Dose: 0.5 mg Documented by: CIERRA Clindamycin Phosphate 900 mg/ (Premix) 50 mls @ 100 mls/hr IV Q8H [facility] Stop: 10/14/20 17:31 Last Admin: 10/13/20 02:34 Dose: 100 mls/hr Documented by: Infusion: 10/12/20 18:05 Dose: 100 mls/hr Documented by: Admin: 10/12/20 17:35 Dose: 100 mls/hr Documented by: JUAN DANIEL Infusion: 10/12/20 09:24 Dose: 100 mls/hr Documented by: JUAN DANIEL Admin: 10/12/20 08:54 Dose: 100 mls/hr Documented by: JUAN DANIEL Infusion: 10/12/20 03:28 Dose: 100 mls/hr Documented by: JUAN DANIEL Admin: 10/12/20 02:58 Dose: 100 mls/hr Documented by: Infusion: 10/11/20 18:14 Dose: 100 mls/hr Documented by: Admin: 10/11/20 17:44 Dose: 100 mls/hr Documented by: JONATHAN Potassium Chloride/Dextrose/Sod Cl (D5 1/2 Ns W/ 20 Meq/L Kcl) 1,000 mls @ 100 mls/hr IV ASDIRECTED [facility] Last Admin: 10/13/20 07:10 Dose: 100 mls/hr Documented by: Infusion: 10/13/20 06:54 Dose: 100 mls/hr Documented by: Admin: 10/12/20 20:54 Dose: 100 mls/hr Documented by: Infusion: 10/12/20 20:54 Dose: 100 mls/hr Documented by: Admin: 10/12/20 11:03 Dose: 100 mls/hr Documented by: JUAN DANIEL Pantoprazole Sodium (Protonix) 40 mg PO ACBREAKFAST [facility] Last Admin: 10/13/20 04:59 Dose: 40 mg Documented by: Admin: 10/12/20 11:03 Dose: 40 mg Documented by: [id number] Polyethylene Glycol (Miralax) 17 gm PO DAILY [facility] Last Admin: 10/12/20 11:03 Dose: 17 gm Documented by: [id number] Promethazine HCl (Phenergan) 25 mg PO Q6H PRN PRN Reason: Nausea/Vomiting - Assessment Assessment (Free Text/Narrative):: 40 y/o lady with diverticulitis in first trimester of - Plan Plan (Free Text/Narrative):: - advance diet to regular as tolerated - d/c ivf - continue ambulation - to receive morning dose of clindamycin, then may transition to oral d/c home if tolerates regular diet Sanjuanita Pretty MD General surgery
[2020-10-13] MEDS: Polyethylene Glycol 3350 Powder 17 GM Packet PO SCH (08:57)
--- NOTE | 2020-10-13 15:41 | PCM.DCSUM1 ---
Discharge Summary - Hospital Course Free Text/Narrative:: The patient is a 40 y/o lady who presented with diverticulitis in the first trimester of . She was Hinchey Class 1, but had severe pain with accompanying nausea, so was admitted for IV antibiotics. She was started on clear liquids on HOD 1, and advanced to regular diet on POD2. Her pain responded appropriately to treatment and her WBC normalized on antibiotic therapy. She was discharged home with clinic follow up. Diagnosis: Stroke: No Modified Hocking Scale: No Signif.Disability Despite Sympt.Able to Carry Out Usual Act./Duties Modified Hocking Scale Score: 1 - Discharge Data Discharge Date: 10/13/20 Discharge Disposition: Home, Self-Care 01 Condition: Good - Referral to Home Health Primary Care Physician: Hilaria Abreu NP - Discharge Diagnosis/Problem(s) (1) Diverticulitis of sigmoid colon SNOMED Code(s): 148008846 ICD Code: K57.32 - DVTRCLI OF LG INT W/O PERFORATION OR ABSCESS W/O BLEEDING Status: Acute (2) First trimester SNOMED Code(s): 39710491 ICD Code: Z34.91 - ENCNTR FOR SUPRVSN OF NORMAL PREG, UNSP, FIRST TRIMESTER Status: Acute - Patient Summary/Data Consults: Consultations 10/11/20 08:11 Consult to Physician [CONS] Stat - Patient Instructions Diet: Usual Diet as Tolerated Activity: Cough & Deep Breathe Showering/Bathing: May Shower Notify Provider of: Fever, Increased Pain, Nausea and/or Vomiting - Discharge Plan *PRESCRIPTION DRUG MONITORING PROGRAM REVIEWED*: Not Applicable *COPY OF PRESCRIPTION DRUG MONITORING REPORT IN PATIENT [place]: Not Applicable Prescriptions/Med Rec: Clindamycin HCl 450 mg PO Q6HR 12 Days #144 capsule polyethylene glycoL 3350 [MiraLAX] 17 gm PO DAILY 30 Days #30 packet Acetaminophen/HYDROcodone [[place] 325-5 MG] 1 tab PO Q4H PRN 14 Days #15 tablet PRN Reason: Pain (Moderate 4-6) Home Medications: Home Meds Acyclovir 400 mg PO ASDIRECTED 08/20/19 [History] Pantoprazole [ProTONIX] 40 mg PO DAILY 08/20/19 [History] Vit No.129/Iron/FA [ One Daily Tablet] 1 each PO DAILY 09/20/20 [History] Acetaminophen/HYDROcodone [[place] 325-5 MG] 1 tab PO Q4H PRN 14 Days #15 tablet 10/13/20 [Rx] Clindamycin HCl 450 mg PO Q6HR 12 Days #144 capsule 10/13/20 [Rx] polyethylene glycoL 3350 [MiraLAX] 17 gm PO DAILY 30 Days #30 packet 10/13/20 [Rx] Patient Handouts: Diverticulitis, [id number], Steps to Quit Smoking, Prevent the Spread of COVID-19 if You Are Sick - CDC Forms: ED Department Discharge Referrals: Sanjuanita Pretty MD [Physician] - 10/21/20 1:30 pm (follow up in 2 weeks) Hilaria Abreu NP [Primary Care Provider] - 10/20/20 10:15 am Bekah Hoyos MD [Physician] - 10/29/20 1:00 pm (follow up as previously arranged.) - Discharge Summary/Plan Comment DC Time >30 min.: No - Patient Data Vitals - Most Recent: Last Vital Signs Temp 36.7 C 10/13/20 10:00 Pulse 79 10/13/20 10:00 Resp 16 10/13/20 10:00 BP 98/62 10/13/20 10:00 Pulse Ox 100 10/13/20 10:00 Weight - Most Recent: 92.034 kg I&O - Last 24 hours: Intake & Output 10/13/20 10/13/20 10/13/20 06:59 14:59 22:59 Intake Total 1110 90 Balance 1110 90 Lab Results - Last 24 hrs: Laboratory Results - last 24 hr 10/13/20 10/13/20 Range/Units 05:24 05:24 WBC 8.97 (3.98-10.04) K/mm3 RBC 3.48 L (3.98-5.22) M/mm3 Hgb 9.6 L (11.2-15.7) gm/dl Hct 30.2 L (34.1-44.9) % MCV 86.8 (79.4-94.8) fl MCH 27.6 (25.6-32.2) pg MCHC 31.8 L (32.2-35.5) g/dl RDW Std Deviation 41.9 (36.4-46.3) fL Plt Count 266 (182-369) K/mm3 MPV 9.4 (9.4-12.3) fl Neut % (Auto) 67.5 (34.0-71.1) % Lymph % (Auto) 20.4 (19.3-51.7) % [place] % (Auto) 10.5 (4.7-12.5) % Eos % (Auto) 1.3 (0.7-5.8) Baso % (Auto) 0.1 (0.1-1.2) % Neut # (Auto) 6.05 (1.56-6.13) K/mm3 Lymph # (Auto) 1.83 (1.18-3.74) K/mm3 [place] # (Auto) 0.94 H (0.24-0.36) K/mm3 Eos # (Auto) 0.12 (0.04-0.36) K/mm3 Baso # (Auto) 0.01 (0.01-0.08) K/mm3 Sodium 141 (136-145) mEq/L Potassium 3.5 (3.5-5.1) mEq/L Chloride 107 (98-107) mEq/L Carbon Dioxide 22 (21-32) mEq/L Anion Gap 15.5 H (5-15) BUN 3 L (7-18) mg/dL Creatinine 0.6 (0.55-1.02) mg/dL Est Cr Clr Drug Dosing 128.24 mL/min Estimated GFR (MDRD) > 60 (>60) mL/min BUN/Creatinine Ratio 5.0 L (14-18) Glucose 96 (74-106) mg/dL Calcium 8.1 L (8.5-10.1) mg/dL Phosphorus 3.8 (2.6-4.7) mg/dL Magnesium 2.1 (1.8-2.4) mg/dl Med Orders - Current: Current Medications Discontinued Medications Hydrocodone Bitart/Acetaminophen ([place] 325-5 Mg) 1 tab PO Q4H PRN PRN Reason: Pain (moderate 4-6) Last Admin: 10/13/20 04:59 Dose: 1 tab Documented by: Diatrizoate Meglum/Diatrizoate Sod (Gastrografin 37%) 40 ml PO ONETIME ONE Stop: 10/11/20 09:21 Last Admin: 10/11/20 10:39 Dose: 40 ml Documented by: Hydromorphone HCl (Dilaudid) 0.5 mg IVPUSH ONETIME ONE Stop: 10/11/20 07:13 Last Admin: 10/11/20 07:28 Dose: 0.5 mg Documented by: Hydromorphone HCl (Dilaudid) 0.5 mg IVPUSH ONETIME ONE Stop: 10/11/20 07:55 Last Admin: 10/11/20 07:57 Dose: 0.5 mg Documented by: Hydromorphone HCl (Dilaudid) 0.5 mg IVPUSH ONETIME ONE Stop: 10/11/20 08:34 Last Admin: 10/11/20 08:35 Dose: 0.5 mg Documented by: Hydromorphone HCl (Dilaudid) 0.5 mg IVPUSH ONETIME ONE Stop: 10/11/20 10:10 Last Admin: 10/11/20 10:17 Dose: 0.5 mg Documented by: Hydromorphone HCl (Dilaudid) 0.5 mg IVPUSH Q2H PRN PRN Reason: Pain (severe 7-10) Last Admin: 10/12/20 09:05 Dose: 0.5 mg Documented by: Dextrose/Sodium Chloride (Dextrose 5%-Normal Saline) 1,000 mls @ 500 mls/hr IV ASDIRECTED [facility] Last Admin: 10/11/20 07:30 Dose: 500 mls/hr Documented by: Clindamycin Phosphate 900 mg/ (Premix) 50 mls @ 100 mls/hr IV ONETIME ONE Stop: 10/11/20 09:37 Last Admin: 10/11/20 09:17 Dose: 100 mls/hr Documented by: Clindamycin Phosphate 900 mg/ (Premix) 50 mls @ 100 mls/hr IV Q8H [facility] Stop: 10/14/20 17:31 Last Admin: 10/13/20 08:54 Dose: 100 mls/hr Documented by: Lactated Ringer's (Ringers, Lactated) 1,000 mls @ 125 mls/hr IV ASDIRECTED [facility] Last Admin: 10/12/20 05:52 Dose: 125 mls/hr Documented by: Potassium Chloride/Dextrose/Sod Cl (D5 1/2 Ns W/ 20 Meq/L Kcl) 1,000 mls @ 100 mls/hr IV ASDIRECTED [facility] Last Admin: 10/13/20 07:10 Dose: 100 mls/hr Documented by: Ondansetron HCl (Zofran) 4 mg IVPUSH ONETIME ONE Stop: 10/11/20 07:13 Last Admin: 10/11/20 07:28 Dose: 4 mg Documented by: Pantoprazole Sodium (Protonix) 40 mg PO ACBREAKFAST [facility] Last Admin: 10/13/20 04:59 Dose: 40 mg Documented by: Polyethylene Glycol (Miralax) 17 gm PO DAILY [facility] Last Admin: 10/13/20 08:57 Dose: 17 gm Documented by: Promethazine HCl (Phenergan) 25 mg PO Q6H PRN PRN Reason: Nausea/Vomiting
== END 2020-10-13 11:16 | disposition home or self-care (01) | DRG 831 ==
LOC: JD.ED 06:31 → JD.SDS 11:48 → JD.MS 11:49
PROVIDERS: ADMIT Surgery; ATTEND Surgery
DX: O99.611 Diseases of the digestive system complicating pregnancy, first trimester (principal); U07.1 COVID-19; K57.32 Diverticulitis of large intestine without perforation or abscess without bleeding; O98.511 Other viral diseases complicating pregnancy, first trimester; K21.9 Gastro-esophageal reflux disease without esophagitis; Z90.89 Acquired absence of other organs; Z90.49 Acquired absence of other specified parts of digestive tract; Z3A.08 8 weeks gestation of pregnancy; Z88.0 Allergy status to penicillin; Z88.1 Allergy status to other antibiotic agents; Z88.2 Allergy status to sulfonamides; Z79.899 Other long term (current) drug therapy
CPT/HCPCS: 36415; 74177; 74177-26; 76705; 76705-26; 76817; 76817-26; 80048; 80053; 81001; 83735; 84100; 84702; 85025; 85610; 85730; 86140; 86850; 86900; 86901; 96365; 96366; 96375; 96376; 99285; 99285-25; A9270-GY; J1170; J2405; J3480; J3490; J7042; J7120; Q9963; U0002

== ENCOUNTER 2021-01-09 10:25 | Emergency (ER) | payer OTHER ==
[2021-01-09] MEDS ORDERED: Sodium Chloride 0.9% 10 ML Syringe FLUSH PRN (11:11)
[2021-01-09] MEDS ORDERED: Sodium Chloride 0.9% 1,000 ML IV STA (11:34)
[2021-01-09] MEDS ORDERED: HYDROmorphone 0.5 MG/0.5 ML Syringe IVPUSH ONE ×2 (11:34→12:33)
[2021-01-09] MEDS ORDERED: Ondansetron 4 MG/2 ML SDV IVPUSH ONE (11:34)
--- NOTE | 2021-01-09 12:02 | EDM.PDOC ---
ED HPI GENERAL MEDICAL PROBLEM - General Chief Complaint: Abdominal Pain Stated Complaint: 21 WEEKS PREG ABDOMINAL PAIN HX OF DIVERTICULITIS Time Seen by Provider: 01/09/21 11:10 Source of Information: Reports: Patient, RN Notes Reviewed History Limitations: Reports: No Limitations - History of Present Illness INITIAL COMMENTS - FREE TEXT/NARRATIVE: Patient is a 40-year-old female presenting to the emergency department with complaints of left lower quadrant abdominal pain. The symptoms began last evening. She is currently 21 weeks . She does have a history signif icant for recurrent diverticulitis. A number of your years back, she had a colon resection which resolved her diverticulitis for quite some time. This past September when she became she developed severe constipation which she states induced diverticulitis. She was hospitalized at that time and the infection resolved. She developed recurrence of symptoms in November and was treated for diverticulitis with clindamycin. Symptoms returned last evening. She has had no fever, chills, nausea, vomiting, or diarrhea. She states since September she has been taking MiraLAX as well as a stool softener daily and has been regular with her bowel movements. Her [employer] is Dr. Hoyos. She saw her on Tuesday for her 20-week ultrasound states that everything was doing well. She denies any pelvic cramping or abnormal vaginal discharge. Left Lower Abdomen Pain Score (Numeric/FACES): 6 - Related Data Allergies Allergy/AdvReac Type Severity Reaction Status Date / Time Cephalosporins Allergy Rash Verified 01/09/21 10:40 Penicillins Allergy Rash Verified 01/09/21 10:40 Sulfa (Sulfonamide Allergy Rash Verified 01/09/21 10:40 Antibiotics) erthyromycin Allergy Rash Uncoded 01/09/21 10:40 Home Meds: Home Meds Acyclovir 400 mg PO ASDIRECTED 08/20/19 [History] Pantoprazole [ProTONIX] 40 mg PO DAILY 08/20/19 [History] Vit No.129/Iron/FA [ One Daily Tablet] 1 each PO DAILY 09/20/20 [History] polyethylene glycoL 3350 [MiraLAX] 17 gm PO DAILY 30 Days #30 packet 10/13/20 [Rx] Hydrocodone/Acetaminophen [Hydrocodone-Acetamin 5-325 mg] 1 each PO Q4H PRN #10 tablet 01/09/21 [Rx] Levofloxacin 750 mg PO DAILY 7 Days #6 tablet 01/09/21 [Rx] metroNIDAZOLE [Flagyl] 500 mg PO Q8H 7 Days #20 tab 01/09/21 [Rx] Past Medical History - Past Health History Medical/Surgical History: Denies Medical/Surgical History Cardiovascular History: Reports: None Respiratory History: Reports: None Gastrointestinal History: Reports: Diverticulosis, GERD, Other (See Below) Other Gastrointestinal History: Colon Abscess--patient developed severe diverticulitis 2 years ago and developed a very difficult diverticular abscess that was not responding to antibiotic therapy for 5 days. She was thus taken to surgery with resection of 8 inches of colon in [place]. At that time they also did take out her appendix. Genitourinary History: Reports: None [employer] History: Reports: Polycystic Ovaries, Other [employer] History: Last normal menstrual period estimated to be August 17. Musculoskeletal History: Reports: None Neurological History: Reports: None Psychiatric History: Reports: None Endocrine/Metabolic History: Reports: Obesity/BMI 30+ Hematologic History: Reports: None Immunologic History: Reports: None Oncologic (Cancer) History: Reports: None Dermatologic History: Reports: None - Infectious Disease History Infectious Disease History: Reports: Novel Coronavirus - Past Surgical History HEENT Surgical History: Reports: Tonsillectomy GI Surgical History: Reports: Appendectomy, Other (See Below) Other GI Surgeries/Procedures: Pt had colon resection in October 2018. Social & Family History - Family History Family Medical History: No Pertinent Family History HEENT: Reports: None Cardiac: Reports: [place] GI: Reports: None : Reports: None OBGYN: Reports: None Endocrine/Metabolic: Reports: Diabetes, type II, Hypothyroidism Oncologic: Reports: Breast, Esophageal, Lymphoma, Skin - Tobacco Use Tobacco Use Status *Q: Former Tobacco User Used Tobacco, but Quit: Yes Month/Year Tobacco Last Used: 08/2020 - Caffeine Use Caffeine Use: Reports: Coffee - Recreational Drug Use Recreational Drug Use: No - Living Situation & Occupation Living situation: Reports: Occupation: Employed ED ROS GENERAL - Review of Systems Review Of Systems: See Below Constitutional: Denies: Fever, Chills HEENT: Reports: No Symptoms Respiratory: Reports: No Symptoms Cardiovascular: Reports: No Symptoms Endocrine: Reports: No Symptoms GI/Abdominal: Reports: Abdominal Pain (LLQ), Nausea. Denies: Bloody Stool, Constipation, Diarrhea, Vomiting : Reports: No Symptoms Musculoskeletal: Reports: No Symptoms Skin: Reports: No Symptoms Neurological: Reports: No Symptoms Psychiatric: Reports: No Symptoms Hematologic/Lymphatic: Reports: No Symptoms Immunologic: Reports: No Symptoms ED EXAM, GI/ABD - Physical Exam Exam: See Below Exam Limited By: No Limitations General Appearance: Alert, WD/WN, No Apparent Distress Respiratory/Chest: No Respiratory Distress, Lungs Clear, Normal Breath Sounds, No Accessory Muscle Use, Chest Non-Tender Cardiovascular: Normal Peripheral Pulses, Regular Rate, Rhythm, No Edema, No Gallop, No JVD, No Murmur, No Rub GI/Abdominal Exam: Normal Bowel Sounds, Soft, No Organomegaly, No Distention, No Abnormal Bruit, No Mass, Pelvis Stable, Tender (LLQ) (Female) Exam: Enlarged Uterus, Heart Tones (156) Neurological: Alert, Oriented, CN II-XII Intact, Normal Cognition, Normal Gait, Normal Reflexes, No Motor/Sensory Deficits Psychiatric: Normal Affect, Normal Mood Skin Exam: Warm, Dry, Intact, Normal Color, No Rash Course - Vital Signs Last Recorded V/S: Last Vital Signs Temp 97.3 F 01/09/21 10:37 Pulse 90 01/09/21 10:37 Resp 12 01/09/21 10:37 BP 118/84 01/09/21 10:37 Pulse Ox 100 01/09/21 10:37 - Orders/Labs/Meds Labs: Laboratory Tests 01/09/21 01/09/21 01/09/21 Range/Units 10:56 10:56 11:00 WBC 17.19 H (3.98-10.04) K/mm3 RBC 4.21 (3.98-5.22) M/mm3 Hgb 12.0 D (11.2-15.7) gm/dl Hct 36.7 (34.1-44.9) % MCV 87.2 (79.4-94.8) fl MCH 28.5 (25.6-32.2) pg MCHC 32.7 (32.2-35.5) g/dl RDW Std Deviation 43.0 (36.4-46.3) fL Plt Count 319 (182-369) K/mm3 MPV 9.8 (9.4-12.3) fl Neut % (Auto) 77.1 H (34.0-71.1) % Lymph % (Auto) 16.2 L (19.3-51.7) % Snyder % (Auto) 5.5 (4.7-12.5) % Eos % (Auto) 0.5 L (0.7-5.8) Baso % (Auto) 0.1 (0.1-1.2) % Neut # (Auto) 13.25 H (1.56-6.13) K/mm3 Lymph # (Auto) 2.78 (1.18-3.74) K/mm3 Snyder # (Auto) 0.95 H (0.24-0.36) K/mm3 Eos # (Auto) 0.09 (0.04-0.36) K/mm3 Baso # (Auto) 0.02 (0.01-0.08) K/mm3 Manual Slide Review Normal smear Sodium 137 (136-145) mEq/L Potassium 4.5 (3.5-5.1) mEq/L Chloride 104 (98-107) mEq/L Carbon Dioxide 23 (21-32) mEq/L Anion Gap 14.5 (5-15) BUN 7 (7-18) mg/dL Creatinine 0.6 (0.55-1.02) mg/dL Est Cr Clr Drug Dosing 128.24 mL/min Estimated GFR (MDRD) > 60 (>60) mL/min BUN/Creatinine Ratio 11.7 L (14-18) Glucose 80 (70-99) mg/dL Calcium 8.3 L (8.5-10.1) mg/dL Total Bilirubin 0.3 (0.2-1.0) mg/dL AST 12 L (15-37) U/L ALT 18 (14-59) U/L Alkaline Phosphatase 56 (46-116) U/L C-Reactive Protein 1.3 H* (<1.0) mg/dL Total Protein 7.0 (6.4-8.2) g/dl Albumin 3.0 L (3.4-5.0) g/dl Globulin 4.0 gm/dL Albumin/Globulin Ratio 0.8 L (1-2) Lipase 108 (73-393) U/L Urine Color Yellow (Yellow) Urine Appearance Clear (Clear) Urine pH 7.0 (5.0-8.0) Ur Specific [place] 1.020 (1.005-1.030) Urine Protein Negative (Negative) Urine Glucose (UA) Negative (Negative) Urine Ketones Negative (Negative) Urine Occult Blood Negative (Negative) Urine Nitrite Negative (Negative) Urine Bilirubin Negative (Negative) Urine Urobilinogen 0.2 (0.2-1.0) Ur Leukocyte Esterase Negative (Negative) Urine RBC Not seen (0-5) /hpf Urine WBC Not seen (0-5) /hpf Ur Squamous Epith Cells 0-5 (0-5) /hpf Urine Bacteria Not seen (FEW) /hpf Urine Mucus Not seen (FEW) /hpf Meds: Medications Discontinued Medications Generic Name Dose Route Start Last Admin Trade Name Freq PRN Reason Stop Dose Admin Hydromorphone HCl 0.5 mg 01/09/21 11:34 01/09/21 11:42 Hydromorphone 0.5 Mg/0.5 Ml Syringe IVPUSH 01/09/21 11:35 0.5 mg ONETIME ONE Administration Hydromorphone HCl 0.5 mg 01/09/21 12:33 01/09/21 12:39 Hydromorphone 0.5 Mg/0.5 Ml Syringe IVPUSH 01/09/21 12:34 0.5 mg ONETIME ONE Administration Sodium Chloride 1,000 mls @ 150 mls/hr 01/09/21 11:34 01/09/21 11:41 Normal Saline IV 01/09/21 18:13 150 mls/hr NOW STA Administration Levofloxacin 750 mg 01/09/21 13:15 01/09/21 13:30 Levofloxacin 750 Mg Tab PO 01/09/21 13:16 750 mg ONETIME ONE Administration Metronidazole 500 mg 01/09/21 13:15 01/09/21 13:30 Metronidazole 500 Mg Tab PO 01/09/21 13:16 500 mg ONETIME ONE Administration Ondansetron HCl 4 mg 01/09/21 11:34 01/09/21 11:41 Ondansetron 4 Mg/2 Ml Sdv IVPUSH 01/09/21 11:35 4 mg ONETIME ONE Administration Sodium Chloride 10 ml 01/09/21 11:11 01/09/21 11:18 Sodium Chloride 0.9% 10 Ml Syringe FLUSH 10 ml ASDIRECTED PRN Administration Keep Vein Open - Re-Assessments/Exams Free Text/Narrative Re-Assessment/Exam: Patient is a 40-year-old female presenting to the emergency department for evaluation with regards to left lower quadrant abdominal pain that began last evening. She has an extensive history of diverticulitis with previous bowel resection and recurrence of infection in September as well as November of this year. On both of those occasions, she has been cleared treated with clindamycin as she was told they were trying to avoid Flagyl during her first trimester. On both instances, the symptoms resolved. Last evening, she experienced return of the left lower quadrant abdominal pain. States it feels the same as her previous episodes of diverticulitis. She denies any nausea, vomiting, diarrhea, or blood in her stool. She has been having regular bowel movements. Have ordered blood work, urinalysis, and an ultrasound of the left lower abdomen. 01/09/21 13:05 Hematology was significant for WBC elevated at 17.19 as well as a CRP of 1.3. Urinalysis was negative for infection. Ultrasound left lower quadrant shows no discrete abnormalities. Case was discussed with the [employer] on-call, Dr. Young. He recommended starting the patient on Levaquin and Flagyl as it is possible that she is not totally clearing the infection with the clindamycin. Given her recurrence of symptoms after treatment with clindamycin, the benefits of this medication regimen outweigh the risks. He recommends follow-up with her [employer] next week for reevaluation. Plan discussed with the patient and she is in agreement with this. I will send prescriptions for Levaquin, Flagyl, as well as hydrocodone with Tylenol as needed for pain. Discussed return precautions. Discharge instructions as documented. Departure - Departure Time of Disposition: 13:05 Disposition: Home, Self-Care 01 Condition: Good Clinical Impression: Diverticulitis of sigmoid colon, Acute abdominal pain in left lower quadrant - Discharge Information *PRESCRIPTION DRUG MONITORING PROGRAM REVIEWED*: Yes *COPY OF PRESCRIPTION DRUG MONITORING REPORT IN PATIENT LAWSON: No Prescriptions: metroNIDAZOLE [Flagyl] 500 mg PO Q8H 7 Days #20 tab Hydrocodone/Acetaminophen [Hydrocodone-Acetamin 5-325 mg] 1 each PO Q4H PRN #10 tablet PRN Reason: Pain Levofloxacin 750 mg PO DAILY 7 Days #6 tablet Instructions: Diverticulitis, [id number] Referrals: Bekah Hoyos MD [Primary Care Provider] - Forms: ED Department Discharge Additional Instructions: You were seen in the emergency department today for recurrence of left lower quadrant abdominal pain. Ultrasound was completed to the area but and did not show any abnormalities, however ultrasound will often not show diverticulitis. You did have an elevation in your white blood cells which raises concern of recurrence of diverticulitis. Your case was discussed with the [employer] on-call, Dr. Young. You have been started on Levaquin and Flagyl for treatment of diverticulitis. You have also been prescribed hydrocodone with Tylenol for pain. Take these medications as prescribed. If your symptoms should worsen or you develop onset of fever, chills, or vomiting with inability to keep medications down, you should return to the emergency department for reevaluation. Otherwise recommend follow-up with Dr. Hoyos in 1 week. Sepsis Event Note (ED) - Evaluation Sepsis Screening Result: No Definite Risk
--- NOTE | 2021-01-09 12:26 | US ---
Limited abdominal ultrasound: Multiple real-time images were obtained of the left lower abdomen. Comparison: Prior abominal ultrasound of 10/11/20 No ovary is seen. No free fluid or other abnormality is noted within the left lower abdomen. Patient is noted to be . Impression: 1. No discrete abnormality is seen on left lower quadrant abdominal ultrasound study. Diagnostic code #1
[2021-01-09] MEDS ORDERED: Levofloxacin 750 MG Tab PO ONE (13:15)
[2021-01-09] MEDS ORDERED: metroNIDAZOLE 500 MG Tab PO ONE (13:15)
== END 2021-01-09 13:33 | disposition home or self-care (01) ==
LOC: JD.ED 10:25
DX: K57.32 Diverticulitis of large intestine without perforation or abscess without bleeding (principal); K21.9 Gastro-esophageal reflux disease without esophagitis; E66.9 Obesity, unspecified; Z88.1 Allergy status to other antibiotic agents; Z88.0 Allergy status to penicillin; Z88.2 Allergy status to sulfonamides; Z79.899 Other long term (current) drug therapy; Z86.16 Personal history of COVID-19; Z68.31 Body mass index [BMI] 31.0-31.9, adult; Z87.891 Personal history of nicotine dependence
CPT/HCPCS: 36415; 76705; 80053; 81001; 83690; 85025; 86140; 96374; 96375; 96376; 99284; A9270; J1170; J2405; J7030

== ENCOUNTER 2021-05-20 01:17 | Inpatient (IN) | payer OTHER ==
[2021-05-20] MEDS ORDERED: Calcium Carbonate 500 MG Tab.Chew PO PRN (07:34)
[2021-05-20] MEDS ORDERED: Ondansetron 4 MG/2 ML SDV IVPUSH PRN (07:34)
[2021-05-20] MEDS ORDERED: Lidocaine 1% 50 ML MDV INJECT ONE (07:34)
[2021-05-20] MEDS ORDERED: Sodium Chloride 0.9% 10 ML Syringe FLUSH PRN (07:34)
[2021-05-20] MEDS ORDERED: Acetaminophen 325 MG Tab PO PRN (07:34)
[2021-05-20] MEDS ORDERED: Nalbuphine 10 MG/1 ML Vial IVPUSH PRN (07:34)
--- NOTE | 2021-05-20 07:39 | PCM.LDHP ---
L&D History of Present Illness - General Date of Service: 05/20/21 Admit Problem/Dx: Admission Diagnosis/Problem Admission Diagnosis/Problem Source of Information: Patient History Limitations: Reports: No Limitations - History of Present Illness Introduction:: Patient is a 40 y/o at 39 3/7 wks who presents for elective IOL. Doing well today. No patterned contractions since last seen. - Related Data Allergies/Adverse Reactions: Allergies Allergy/AdvReac Type Severity Reaction Status Date / Time Cephalosporins Allergy Rash Verified 05/20/21 07:29 Penicillins Allergy Rash Verified 05/20/21 07:29 Sulfa (Sulfonamide Allergy Rash Verified 05/20/21 07:29 Antibiotics) erthyromycin Allergy Rash Uncoded 01/09/21 10:40 Home Medications: Home Meds Acetaminophen [Tylenol Extra Strength] 1,000 mg PO Q6H PRN 05/20/21 [History] Acyclovir [Zovirax] 800 mg PO ONETIME PRN 05/20/21 [History] Cyclobenzaprine [Flexeril] 10 mg PO TID PRN 05/20/21 [History] Pantoprazole Sodium [Protonix] 40 mg PO ACBREAKFAST 05/20/21 [History] No122/Iron/Folic Acid [ Multi Tablet] 1 each PO DAILY 05/20/21 [History] ondansetron HCL [Zofran] 4 mg PO TID PRN 05/20/21 [History] Past Medical History Gastrointestinal History: Reports: Diverticulosis, GERD, Other (See Below) 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 Female Surgical History: Reports: D&C Social & Family History - Family History Family Medical History: No Pertinent Family History HEENT: Reports: None Cardiac: Reports: [place] GI: Reports: None : Reports: None OBGYN: Reports: None Endocrine/Metabolic: Reports: Diabetes, type II, Hypothyroidism Oncologic: Reports: Breast, Esophageal, Lymphoma, Skin - Tobacco Use Tobacco Use Status *Q: Former Tobacco User - Caffeine Use Caffeine Use: Reports: Coffee - Alcohol Use Alcohol Use History: No - Recreational Drug Use Recreational Drug Use: No - Living Situation & Occupation Living situation: Reports: Occupation: Employed H&P Review of Systems - Review of Systems: Review Of Systems: See Below General: Reports: No Symptoms Pulmonary: Reports: No Symptoms Cardiovascular: Reports: No Symptoms Gastrointestinal: Reports: No Symptoms Genitourinary: Reports: No Symptoms Musculoskeletal: Reports: No Symptoms Psychiatric: Reports: No Symptoms Neurological: Reports: No Symptoms L&D Exam - Exam Exam: See Below - Vital Signs Weight: 103.238 kg - OB Specific Contraction Intensity: Irritability Movement: Active Heart Tones: Present Heart Tones per Min: 150 Heart Rate (FHR) Variability: Moderate (6-25 bpm) Presentation: Vertex - Gottlieb Score Gottlieb Score Cervix Position: Posterior Gottlieb Score Consistency: Soft Gottlieb Score Effacement: 51-70% Gottlieb Score Dilation: 3-4 cm Gottlieb Score Infant's Station: -2 Gottlieb Score Total: 7 - Exam General: Alert, Oriented, Cooperative Lungs: Clear to Auscultation, Normal Respiratory Effort Cardiovascular: Regular Rate, Regular Rhythm GI/Abdominal Exam: Soft, Non-Tender Genitourinary: Normal external exam Back Exam: Normal Inspection Extremities: Normal Inspection Skin: Warm, Dry, Intact - Patient Data Result Diagrams: 05/20/21 08:02 - Problem List (1) 39 weeks gestation of SNOMED Code(s): 48975833 ICD Code: Z3A.39 - 39 WEEKS GESTATION OF Status: Acute Current Visit: Yes (2) GBS (group B Streptococcus carrier), +RV culture, currently SNOMED Code(s): 0763398897311, [id number], [id number] ICD Code: O99.820 - STREPTOCOCCUS B CARRIER STATE COMPLICATING Status: Acute Current Visit: Yes Problem List Initiated/Reviewed/Updated: Yes Assessment/Plan Comment:: * Labs to be done * GBS positive with allergies to cephalosporins and PCNs. Resistance to Clindamycin. Begin Vancomycin * Fitzpatrick bulb placed, pitocin started as well. AROM when appropriate * Pain management per patient preference * Anticipate
[2021-05-20] MEDS ORDERED: diphenhydrAMINE 50 MG/ML SDV IVPUSH PRN (07:40)
[2021-05-20] MEDS ORDERED: fentaNYL 100 MCG/2 ML SDV EPIDUR PRN (07:40)
[2021-05-20] MEDS ORDERED: ePHEDrine 50 MG/ML SDV IVPUSH PRN (07:40)
[2021-05-20] MEDS ORDERED: Oxytocin/Lactated Ringers 20 UNIT/1,000 ML BAG IV SCH (07:45)
[2021-05-20] MEDS: Lactated Ringers 1,000 ML IV SCH ×3 (08:47→15:48)
[2021-05-20] MEDS: Oxytocin/Lactated Ringers 10 UNIT/1,000 ML BAG IV SCH ×2 (08:47→23:30)
--- NOTE | 2021-05-20 12:23 | PCM.PNLD ---
Labor Progress Note - VS & Meds Vital Signs: Last Vital Signs Temp 37.3 C 05/20/21 08:15 Pulse 98 05/20/21 08:15 Resp 16 05/20/21 08:15 BP 123/80 05/20/21 08:15 Pulse Ox 98 05/20/21 08:15 Active Medications: Current Medications Acetaminophen (Acetaminophen 325 Mg Tab) 650 mg PO Q4H PRN PRN Reason: Fever greater than 100.4 Calcium Carbonate/Glycine (Calcium Carbonate 500 Mg Tab.Chew) 1,000 mg PO Q2H PRN PRN Reason: Indigestion Diphenhydramine HCl (Diphenhydramine 50 Mg/Ml Sdv) 25 mg IVPUSH Q6H PRN PRN Reason: pruritis Ephedrine Sulfate (Ephedrine 50 Mg/Ml Sdv) 5 mg IVPUSH ASDIRECTED PRN PRN Reason: Hypotension Fentanyl (Fentanyl 100 Mcg/2 Ml Sdv) 100 mcg EPIDUR Q3H PRN PRN Reason: Pain Fentanyl/Bupivacaine HCl (Bupivacaine/Fentanyl/Ns 100 Ml Bag) 100 ml EPIDUR ASDIRECTED PRN PRN Reason: Pain Vancomycin HCl 1 gm/ Sodium (Chloride) 250 mls @ 250 mls/hr IV Q12H OMI Last Admin: 05/20/21 08:47 Dose: 250 mls/hr Documented by: Oxytocin/Lactated Ringer's (Pitocin In Lr 10 Units/1,000 Ml) 10 unit in 1,000 mls @ 12 mls/hr IV TITRATE OMI; Protocol Last Titration: 05/20/21 11:19 Dose: 8 munits/min, 48 mls/hr Documented by: Oxytocin/Lactated Ringer's (Pitocin In Lr 20 Units/1,000 Ml) 20 unit in 1,000 mls @ 500 mls/hr IV .CONTINUOUS OMI Lactated Ringer's (Ringers, Lactated) 1,000 mls @ 40 mls/hr IV ASDIRECTED OMI Last Admin: 05/20/21 08:47 Dose: 40 mls/hr Documented by: Nalbuphine HCl (Nalbuphine 10 Mg/1 Ml Vial) 10 mg IVPUSH Q2H PRN PRN Reason: Pain Ondansetron HCl (Ondansetron 4 Mg/2 Ml Sdv) 4 mg IVPUSH Q4H PRN PRN Reason: Nausea/Vomiting Sodium Chloride (Sodium Chloride 0.9% 10 Ml Syringe) 10 ml FLUSH ASDIRECTED PRN PRN Reason: Keep Vein Open Discontinued Medications Lidocaine HCl (Lidocaine 1% 50 Ml Mdv) 20 ml INJECT ONETIME ONE Stop: 05/20/21 07:35 - Uterine Contractions Uterine Monitoring Mode: External [place] Contraction Intensity: Mild Uterine Resting Tone: Soft - Monitoring Monitor Mode: External Ultrasound Heart Rate (FHR) Baseline: 145 Heart Rate (FHR) Variability: Moderate (6-25 bpm) Accelerations: Present, 15x15 Decelerations: None Strip Review: Category I - Vaginal Exam Dilation (cm): 5 Effacement (Percent): 75 Station: -1 Cervical Position: Midposition - Labor Progress (Free Text) Labor Progress: Doing well. Balloon catheter successfully expelled/removed with gentle tension. AROM done with release of clear fluid. Pitocin at 10. Continue current management. Bekah Hoyos MD
[2021-05-20] MEDS: Bupivacaine/fentaNYL/NS 100 ML Bag EPIDUR PRN ×2 (14:38→21:25)
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
[2021-05-20] MEDS ORDERED: Oxytocin/Lactated Ringers 10 UNIT/1,000 ML BAG IV SCH (17:00)
--- NOTE | 2021-05-20 18:46 | PCM.PNLD ---
Labor Progress Note - VS & Meds Vital Signs: Last Vital Signs Temp 37.3 C 05/20/21 08:15 Pulse 98 05/20/21 08:15 Resp 16 05/20/21 08:15 BP 123/80 05/20/21 08:15 Pulse Ox 98 05/20/21 08:15 Active Medications: Current Medications Acetaminophen (Acetaminophen 325 Mg Tab) 650 mg PO Q4H PRN PRN Reason: Fever greater than 100.4 Calcium Carbonate/Glycine (Calcium Carbonate 500 Mg Tab.Chew) 1,000 mg PO Q2H PRN PRN Reason: Indigestion Diphenhydramine HCl (Diphenhydramine 50 Mg/Ml Sdv) 25 mg IVPUSH Q6H PRN PRN Reason: pruritis Ephedrine Sulfate (Ephedrine 50 Mg/Ml Sdv) 5 mg IVPUSH ASDIRECTED PRN PRN Reason: Hypotension Fentanyl (Fentanyl 100 Mcg/2 Ml Sdv) 100 mcg EPIDUR Q3H PRN PRN Reason: Pain Last Admin: 05/20/21 14:37 Dose: 100 mcg Documented by: Fentanyl/Bupivacaine HCl (Bupivacaine/Fentanyl/Ns 100 Ml Bag) 100 ml EPIDUR ASDIRECTED PRN PRN Reason: Pain Last Admin: 05/20/21 14:38 Dose: 100 ml Documented by: Vancomycin HCl 1 gm/ Sodium (Chloride) 250 mls @ 250 mls/hr IV Q12H OMI Last Admin: 05/20/21 08:47 Dose: 250 mls/hr Documented by: Oxytocin/Lactated Ringer's (Pitocin In Lr 10 Units/1,000 Ml) 10 unit in 1,000 mls @ 12 mls/hr IV TITRATE OMI; Protocol Last Titration: 05/20/21 18:15 Dose: 17 munits/min, 102 mls/hr Documented by: Lactated Ringer's (Ringers, Lactated) 1,000 mls @ 40 mls/hr IV ASDIRECTED OMI Last Admin: 05/20/21 15:48 Dose: 999 mls/hr Documented by: Oxytocin/Lactated Ringer's (Pitocin In Lr 10 Units/1,000 Ml) 10 unit in 1,000 mls @ 500 mls/hr IV ASDIRECTED OMI; Protocol Nalbuphine HCl (Nalbuphine 10 Mg/1 Ml Vial) 10 mg IVPUSH Q2H PRN PRN Reason: Pain Ondansetron HCl (Ondansetron 4 Mg/2 Ml Sdv) 4 mg IVPUSH Q4H PRN PRN Reason: Nausea/Vomiting Sodium Chloride (Sodium Chloride 0.9% 10 Ml Syringe) 10 ml FLUSH ASDIRECTED PRN PRN Reason: Keep Vein Open Discontinued Medications Lidocaine HCl (Lidocaine 1% 50 Ml Mdv) 20 ml INJECT ONETIME ONE Stop: 05/20/21 07:35 - Uterine Contractions Uterine Monitoring Mode: External [place] Contraction Intensity: Moderate to Strong Uterine Resting Tone: Soft - Monitoring Monitor Mode: External Ultrasound Heart Rate (FHR) Baseline: 135 Heart Rate (FHR) Variability: Moderate (6-25 bpm) Accelerations: Present, 15x15 Decelerations: None Strip Review: Category I - Vaginal Exam Dilation (cm): 7 Effacement (Percent): 70 Station: -1 Cervical Position: Midposition - Labor Progress (Free Text) Labor Progress: Patient received epidural at 1500. At 1530 was check by RN and thought to be 6- 7. Checked again at 1700 by RN and thought to be 7 cm. Just checked now at 1845 and still thought to be at about 7 cm. IUPC placed. Pitocin currently at 17. Continue present management.
[2021-05-21] MEDS ORDERED: Famotidine 20 MG/2 ML SDV IVPUSH ONE (00:29)
[2021-05-21] MEDS ORDERED: Misoprostol 200 MCG Tab PO ONE (01:37)
--- NOTE | 2021-05-21 01:44 | PCM.DEL ---
L & D Note - General Info Date of Service: 05/21/21 - Delivery Note Labor: Induced by ARM, Induced by Oxytocin Cervical Ripening Method: Balloon Device Delivery Outcome: Livebirth Infant Delivery Method: Spontaneous Vaginal Delivery-Single Infant Delivery Mode: Spontaneous Presentation: Left Occiput Anterior (SANDRA) Nuchal Cord: None Anesthesia Type: Epidural Amniotic Fluid Description: Clear Episiotomy Type: None Laceration: 2nd Degree, Perineal Suture type: Vicryl Suture size: 2-0 Placenta: Intact, Spontaneous Cord: 3 Vessels Estimated Blood Loss: 350 Resuscitation Needed: Yes : Suctioned, Bulb Syringe, Stimulated, Warmed, [place] Used, Warmer Used Delivery Comments (Free Text/Narrative):: The patient was pushing in the dorsal lithotomy position. Sterile vaginal exam complete/complete/+3 station. head in SANDRA presentation. Maternal pushing effort was good and the pelvis was felt to be adequate for an instrument assisted delivery. Given material exhaustion, patient pushing for about 3 hours, the decision was made to proceed with vacuum assisted vaginal delivery. The mushroom cup was placed without difficulty with care to avoid the vaginal side sheets at 0115. Total pressure applied 550 mm Hg. Total pop offs 0. Suction was removed following delivery of the head. Nuchal cord tight so not reduced. The remainder of the delivered without difficulty at 0117. The umbilical cord was clamped and cut and the was taken to warmer for assessment. Inspection of the perineum following delivery with a 2nd degree laceration. This was repaired with 2-0 Vicryl in the typical fashion. Poor uterine tone noted which responed to 600 mcg of buccal cytotec. Vacuum Extractor Progress Note - Alternative Labor Strategies Considered Alternative Labor Strategies Considered:: Reports: Yes Strategies Considered:: Reports: Contraction Intensity Adequate, Position Changes Used to Facilitate Rotation & Descent, Empty Bladder Indications Considered:: Reports: Yes Indications:: Reports: Shortening of 2nd Stage for Maternal Benefit Time Out:: Reports: Yes - Patient Prepared Patient Prepared:: Reports: Yes Informed Consent:: Reports: Verbal Risks: Reports: Yes Risks Include:: Reports: Laceration, Shoulder Dystocia, Maternal Injury Anesthesia/Analgesia Adequate:: Reports: Yes - Probability of Success High Probability of Success:: Reports: Yes Weight Estimated:: Reports: AGA Patient Diabetic:: Reports: No Pelvis Adequate:: Reports: Yes Position:: SANDRA Asynclitic:: Reports: No Station:: +3 - Application Time Maximum Application Time & Number of Pop-Offs Predetermined:: Reports: Yes Maximum Pressure Maintained in [place] (cm Hg):: 550 Total Application Time (min): *max=20min: 2 Number of Times Cup Disengaged:: 0 Type of Vacuum Used:: Reports: Cup: Mushroom type - Exit Strategy Exit strategy available:: Reports: Yes and resuscitation teams readily available:: Reports: Yes - General Info Date of Service: 05/21/21 - Patient Data Vitals - Most Recent: Last Vital Signs Temp 37.3 C 05/20/21 08:15 Pulse 98 05/20/21 08:15 Resp 16 05/20/21 08:15 BP 123/80 05/20/21 08:15 Pulse Ox 98 05/20/21 08:15 Weight - Most Recent: 103.238 kg I&O - Last 24 Hours: Intake & Output 05/20/21 05/20/21 05/21/21 14:59 22:59 06:59 Intake Total 2250 Balance 2250 - Exam Urinary Catheter Total Time: 0Days 0Hours - Problem List & Annotations (1) 39 weeks gestation of SNOMED Code(s): 90631433 Code(s): Z3A.39 - 39 WEEKS GESTATION OF Status: Acute Current Visit: Yes (2) GBS (group B Streptococcus carrier), +RV culture, currently SNOMED Code(s): 8321299188054, 185270130, 6647966804043 Code(s): O99.820 - STREPTOCOCCUS B CARRIER STATE COMPLICATING Status: Acute Current Visit: Yes (3) Vacuum-assisted vaginal delivery SNOMED Code(s): 11139731417077293 Code(s): Z37.9 - OUTCOME OF DELIVERY, UNSPECIFIED Status: Acute Current Visit: Yes - Problem List Review Problem List Initiated/Reviewed/Updated: Yes - My Orders Last 24 Hours: My Active Orders 05/20/21 Breakfast Regular Diet [DIET] 05/20/21 07:34 Patient Status [ADT] Routine Communication Order [RC] ASDIRECTED Communication Order [RC] ASDIRECTED Communication Order [RC] ASDIRECTED Communication Order [RC] ASDIRECTED Notify Provider [RC] ASDIRECTED Notify Provider [RC] PFP Notify Provider [RC] PRN Urinary Catheter Assessment [RC] ASDIRECTED Acetaminophen [TylenoL] 650 mg PO Q4H PRN Calcium Carbonate [Tums] 1,000 mg PO Q2H PRN Nalbuphine [Nubain] 10 mg IVPUSH Q2H PRN Ondansetron [Zofran] 4 mg IVPUSH Q4H PRN Sodium Chloride 0.9% [Saline Flush] 10 ml FLUSH ASDIRECTED PRN Electronic Heart Tones Ext w TOCO [WOMSER] Routine Electronic Heart Tones Internal [WOMSER] Per Unit Routine Peripheral IV Insertion Adult [OM.PC] Routine Resuscitation Status Routine 05/20/21 07:36 Peripheral IV Care [RC] Q4HR 05/20/21 07:39 Up ad Meg [RC] ASDIRECTED 05/20/21 07:40 Pump Management, Intrathecal [RC] ASDIRECTED 05/20/21 07:45 Lactated Ringers [Ringers, Lactated] 1,000 ml IV ASDIRECTED Oxytocin/Lactated Ringers [Pitocin in LR 10 Units/1,000 ML] 10 unit in 1,000 ml IV TITRATE 05/20/21 08:00 Vancomycin [Vancocin] 1 gm Sodium Chloride 0.9% [Normal Saline (AdvBag)] 250 ml IV Q12H 05/20/21 08:02 HEP C VIRUS AB [REF] Stat 05/20/21 17:00 Oxytocin/Lactated Ringers [Pitocin in LR 10 Units/1,000 ML] 10 unit in 1,000 ml IV ASDIRECTED - Assessment Assessment:: POD#0 - Plan Plan:: * Routine cares * Breast feeding * Discharge home in 1-2 days
[2021-05-21] MEDS ORDERED: Benzocaine/Menthol 20%-0.5% Spray 78 GM Cannister TOP PRN (02:16)
[2021-05-21] MEDS ORDERED: Docusate Sodium 100 MG Cap PO PRN (02:16)
[2021-05-21] MEDS: Witch Hazel Medicated Pads 40/Jar TOP PRN ×2 (02:45→20:34)
[2021-05-21] MEDS: Ibuprofen 600 MG Tab PO PRN ×2 (02:46→15:23)
[2021-05-21] MEDS: Acetaminophen 325 MG Tab PO PRN (11:16)
--- NOTE | 2021-05-21 11:58 | PCM48HPAN ---
Post Anesthesia Note - EVALUATION WITHIN 48HRS OF ANESTHETIC Vital Signs in Normal Range: Yes Patient Participated in Evaluation: Yes Respiratory Function Stable: Yes Airway Patent: Yes Cardiovascular Function Stable: Yes Hydration Status Stable: Yes Pain Control Satisfactory: Yes Nausea and Vomiting Control Satisfactory: Yes Mental Status Recovered: Yes Vital Signs: Last Vital Signs Temp 98.2 F 05/21/21 08:09 Pulse 99 05/21/21 08:09 Resp 14 05/21/21 08:09 BP 108/67 05/21/21 08:09 Pulse Ox 96 05/21/21 08:09 - COMMENTS/OBSERVATIONS Free Text/Narrative:: Visited with patient regarding her epidural experience. Patient stated that it "worked great". Discussed signs and symptoms of infection, post-dural puncture headache, and post- depression. Patient denying any of those symptoms at this time. Encouraged patient to contact OB/Anesthesia if any of these symptoms develop even after the patient goes home so the patient may be treated accordingly if needed. Also discussed that the patient may experience some back pain from the epidural placement. Patient stated that she does have some mild discomfort in which she described as a bruise. Encouraged patient to contact OB/Anesthesia if her back pain get worse. Patient verbalized understanding. No questions or concerns verbalized at this time. Corrie Ding, CARPENTER [employer]SEMBLER
[2021-05-21] MEDS ORDERED: ePHEDrine 50 MG/ML SDV ONE (16:00)
[2021-05-21] MEDS ORDERED: Bupivacaine 0.25% 10 ML SDV ONE (16:00)
[2021-05-22] MEDS: Ibuprofen 600 MG Tab PO PRN ×3 (01:38→21:42)
--- NOTE | 2021-05-22 06:41 | PCM.PNLD ---
Labor Progress Note - VS & Meds Vital Signs: Last Vital Signs Temp 36.4 C 05/22/21 04:20 Pulse 88 05/22/21 04:20 Resp 16 05/22/21 04:20 BP 114/68 05/22/21 04:20 Pulse Ox 97 05/22/21 04:20 Active Medications: Current Medications Acetaminophen (Acetaminophen 325 Mg Tab) 650 mg PO Q4H PRN PRN Reason: mild pain or fever Last Admin: 05/21/21 11:16 Dose: 650 mg Documented by: Benzocaine/Menthol (Benzocaine/Menthol 20%-0.5% [place] 78 Gm Cannister) 0 gm TOP ASDIRECTED PRN PRN Reason: Perineal Comfort Measure Last Admin: 05/21/21 02:44 Dose: 1 can Documented by: Docusate Sodium (Docusate Sodium 100 Mg Cap) 100 mg PO BID PRN PRN Reason: Constipation Ibuprofen (Ibuprofen 600 Mg Tab) 600 mg PO Q6H PRN PRN Reason: Mild pain or fever Last Admin: 05/22/21 01:38 Dose: 600 mg Documented by: Radha Bruce (Radha Bruce Medicated Pads 40/Jar) 1 pad TOP ASDIRECTED PRN PRN Reason: Perineal Comfort Measure Last Admin: 05/21/21 20:34 Dose: 1 tub Documented by: Discontinued Medications Acetaminophen (Acetaminophen 325 Mg Tab) 650 mg PO Q4H PRN PRN Reason: Fever greater than 100.4 Last Admin: 05/20/21 21:31 Dose: 650 mg Documented by: Bupivacaine HCl (Bupivacaine 0.25% 10 Ml Sdv) 10 ml .ROUTE .STK-MED ONE Stop: 05/21/21 16:01 Calcium Carbonate/Glycine (Calcium Carbonate 500 Mg Tab.Chew) 1,000 mg PO Q2H PRN PRN Reason: Indigestion Diphenhydramine HCl (Diphenhydramine 50 Mg/Ml Sdv) 25 mg IVPUSH Q6H PRN PRN Reason: pruritis Last Admin: 05/20/21 20:04 Dose: 25 mg Documented by: Ephedrine Sulfate (Ephedrine 50 Mg/Ml Sdv) 5 mg IVPUSH ASDIRECTED PRN PRN Reason: Hypotension Ephedrine Sulfate (Ephedrine 50 Mg/Ml Sdv) 50 mg .ROUTE .STK-MED ONE Stop: 05/21/21 16:01 Famotidine (Famotidine 20 Mg/2 Ml Sdv) 20 mg IVPUSH ONETIME ONE Stop: 05/21/21 00:30 Last Admin: 05/21/21 00:50 Dose: 20 mg Documented by: Fentanyl (Fentanyl 100 Mcg/2 Ml Sdv) 100 mcg EPIDUR Q3H PRN PRN Reason: Pain Last Admin: 05/20/21 14:37 Dose: 100 mcg Documented by: Fentanyl/Bupivacaine HCl (Bupivacaine/Fentanyl/Ns 100 Ml Bag) 100 ml EPIDUR ASDIRECTED PRN PRN Reason: Pain Last Admin: 05/20/21 21:25 Dose: 100 ml Documented by: Vancomycin HCl 1 gm/ Sodium (Chloride) 250 mls @ 250 mls/hr IV Q12H OMI Last Admin: 05/20/21 20:06 Dose: 250 mls/hr Documented by: Oxytocin/Lactated Ringer's (Pitocin In Lr 10 Units/1,000 Ml) 10 unit in 1,000 mls @ 12 mls/hr IV TITRATE OMI; Protocol Last Titration: 05/20/21 23:46 Dose: 20 munits/min, 120 mls/hr Documented by: Lactated Ringer's (Ringers, Lactated) 1,000 mls @ 40 mls/hr IV ASDIRECTED OMI Last Admin: 05/20/21 15:48 Dose: 999 mls/hr Documented by: Oxytocin/Lactated Ringer's (Pitocin In Lr 10 Units/1,000 Ml) 10 unit in 1,000 mls @ 500 mls/hr IV ASDIRECTED OMI; Protocol Lidocaine HCl (Lidocaine 1% 50 Ml Mdv) 20 ml INJECT ONETIME ONE Stop: 05/20/21 07:35 Last Admin: 05/21/21 04:17 Dose: Not Given Documented by: Misoprostol (Misoprostol 200 Mcg Tab) 600 mcg PO ONETIME ONE Stop: 05/21/21 01:38 Last Admin: 05/21/21 01:37 Dose: 600 mcg Documented by: Nalbuphine HCl (Nalbuphine 10 Mg/1 Ml Vial) 10 mg IVPUSH Q2H PRN PRN Reason: Pain Ondansetron HCl (Ondansetron 4 Mg/2 Ml Sdv) 4 mg IVPUSH Q4H PRN PRN Reason: Nausea/Vomiting Sodium Chloride (Sodium Chloride 0.9% 10 Ml Syringe) 10 ml FLUSH ASDIRECTED PRN PRN Reason: Keep Vein Open - Uterine Contractions Uterine Monitoring Mode: External [place] Contraction Intensity: Moderate to Strong Uterine Resting Tone: Soft - Monitoring Monitor Mode: External Ultrasound Heart Rate (FHR) Baseline: 135 Heart Rate (FHR) Variability: Moderate (6-25 bpm) Accelerations: Present, 15x15 Decelerations: None Strip Review: Category I - Vaginal Exam Dilation (cm): 7 Effacement (Percent): 70 Station: -1 Cervical Position: Midposition
--- NOTE | 2021-05-22 09:50 | PCM.PNPP ---
- General Info Date of Service: 05/22/21 Functional Status: Reports: Pain Controlled, Tolerating Diet, Ambulating, Urinating - Review of Systems General: Reports: No Symptoms Pulmonary: Reports: No Symptoms Cardiovascular: Reports: No Symptoms Gastrointestinal: Reports: No Symptoms Genitourinary: Reports: No Symptoms Musculoskeletal: Reports: Back Pain - General Info Date of Service: 05/22/21 - Patient Data Vital Signs - Most Recent: Last Vital Signs Temp 36.3 C 05/22/21 07:37 Pulse 89 05/22/21 07:37 Resp 14 05/22/21 07:37 BP 116/83 05/22/21 07:37 Pulse Ox 97 05/22/21 07:37 Weight - Most Recent: 103.238 kg Lab Results - Last 24 Hours: Laboratory Results - last 24 hr 05/20/21 Range/Units 08:02 Hepatitis C Antibody <0.1 (0.0-0.9) s/co ratio Med Orders - Current: Current Medications Acetaminophen (Acetaminophen 325 Mg Tab) 650 mg PO Q4H PRN PRN Reason: mild pain or fever Last Admin: 05/21/21 11:16 Dose: 650 mg Documented by: Benzocaine/Menthol (Benzocaine/Menthol 20%-0.5% [place] 78 Gm Cannister) 0 gm TOP ASDIRECTED PRN PRN Reason: Perineal Comfort Measure Last Admin: 05/21/21 02:44 Dose: 1 can Documented by: Docusate Sodium (Docusate Sodium 100 Mg Cap) 100 mg PO BID PRN PRN Reason: Constipation Ibuprofen (Ibuprofen 600 Mg Tab) 600 mg PO Q6H PRN PRN Reason: Mild pain or fever Last Admin: 05/22/21 01:38 Dose: 600 mg Documented by: Radha Bruce (Radha Bruce Medicated Pads 40/Jar) 1 pad TOP ASDIRECTED PRN PRN Reason: Perineal Comfort Measure Last Admin: 05/21/21 20:34 Dose: 1 tub Documented by: Discontinued Medications Acetaminophen (Acetaminophen 325 Mg Tab) 650 mg PO Q4H PRN PRN Reason: Fever greater than 100.4 Last Admin: 05/20/21 21:31 Dose: 650 mg Documented by: Bupivacaine HCl (Bupivacaine 0.25% 10 Ml Sdv) 10 ml .ROUTE .STK-MED ONE Stop: 05/21/21 16:01 Calcium Carbonate/Glycine (Calcium Carbonate 500 Mg Tab.Chew) 1,000 mg PO Q2H PRN PRN Reason: Indigestion Diphenhydramine HCl (Diphenhydramine 50 Mg/Ml Sdv) 25 mg IVPUSH Q6H PRN PRN Reason: pruritis Last Admin: 05/20/21 20:04 Dose: 25 mg Documented by: Ephedrine Sulfate (Ephedrine 50 Mg/Ml Sdv) 5 mg IVPUSH ASDIRECTED PRN PRN Reason: Hypotension Ephedrine Sulfate (Ephedrine 50 Mg/Ml Sdv) 50 mg .ROUTE .STK-MED ONE Stop: 05/21/21 16:01 Famotidine (Famotidine 20 Mg/2 Ml Sdv) 20 mg IVPUSH ONETIME ONE Stop: 05/21/21 00:30 Last Admin: 05/21/21 00:50 Dose: 20 mg Documented by: Fentanyl (Fentanyl 100 Mcg/2 Ml Sdv) 100 mcg EPIDUR Q3H PRN PRN Reason: Pain Last Admin: 05/20/21 14:37 Dose: 100 mcg Documented by: Fentanyl/Bupivacaine HCl (Bupivacaine/Fentanyl/Ns 100 Ml Bag) 100 ml EPIDUR ASDIRECTED PRN PRN Reason: Pain Last Admin: 05/20/21 21:25 Dose: 100 ml Documented by: Vancomycin HCl 1 gm/ Sodium (Chloride) 250 mls @ 250 mls/hr IV Q12H OMI Last Admin: 05/20/21 20:06 Dose: 250 mls/hr Documented by: Oxytocin/Lactated Ringer's (Pitocin In Lr 10 Units/1,000 Ml) 10 unit in 1,000 mls @ 12 mls/hr IV TITRATE OMI; Protocol Last Titration: 05/20/21 23:46 Dose: 20 munits/min, 120 mls/hr Documented by: Lactated Ringer's (Ringers, Lactated) 1,000 mls @ 40 mls/hr IV ASDIRECTED OMI Last Admin: 05/20/21 15:48 Dose: 999 mls/hr Documented by: Oxytocin/Lactated Ringer's (Pitocin In Lr 10 Units/1,000 Ml) 10 unit in 1,000 mls @ 500 mls/hr IV ASDIRECTED OMI; Protocol Lidocaine HCl (Lidocaine 1% 50 Ml Mdv) 20 ml INJECT ONETIME ONE Stop: 05/20/21 07:35 Last Admin: 05/21/21 04:17 Dose: Not Given Documented by: Misoprostol (Misoprostol 200 Mcg Tab) 600 mcg PO ONETIME ONE Stop: 05/21/21 01:38 Last Admin: 05/21/21 01:37 Dose: 600 mcg Documented by: Nalbuphine HCl (Nalbuphine 10 Mg/1 Ml Vial) 10 mg IVPUSH Q2H PRN PRN Reason: Pain Ondansetron HCl (Ondansetron 4 Mg/2 Ml Sdv) 4 mg IVPUSH Q4H PRN PRN Reason: Nausea/Vomiting Sodium Chloride (Sodium Chloride 0.9% 10 Ml Syringe) 10 ml FLUSH ASDIRECTED PRN PRN Reason: Keep Vein Open - Infant Interaction Disposition, : [place] in Room with Family Interaction: Holding Feeding: Attempted ; Nursed Fair/Poor Support Person: Significant Other - Recovery Exam Fundal Tone: Firm Fundal Level: At Umbilicus Fundal Placement: Midline Lochia Amount: Small Lochia Color: Rubra/Red Perineum Description: Other (see below) Other Perinuem Description: 2nd degree laceration with repair Episiotomy/Laceration: Approximated Bladder Status: Voiding Urinary Elimination: Voided - Exam General: Alert, Oriented, Cooperative GI/Abdominal Exam: Soft, Non-Tender - Problem List & Annotations (1) 39 weeks gestation of SNOMED Code(s): 60398960 Code(s): Z3A.39 - 39 WEEKS GESTATION OF Status: Acute Current Visit: Yes (2) GBS (group B Streptococcus carrier), +RV culture, currently SNOMED Code(s): 0776353507551, 763044076, 7447387964297 Code(s): O99.820 - STREPTOCOCCUS B CARRIER STATE COMPLICATING Status: Acute Current Visit: Yes (3) Vacuum-assisted vaginal delivery SNOMED Code(s): 99049806486933413 Code(s): Z37.9 - OUTCOME OF DELIVERY, UNSPECIFIED Status: Acute Current Visit: Yes - Problem List Review Problem List Initiated/Reviewed/Updated: Yes - My Orders Last 24 Hours: My Active Orders 05/22/21 02:16 Heat Therapy [OM.PC] PRN - Assessment Assessment:: POD#1 - Plan Plan:: * Routine cares * Breast feeding * Discharge home tomorrow
--- NOTE | 2021-05-22 17:18 | PCM.DCSUM1 ---
Discharge Summary - Discharge Data Discharge Date: 05/22/21 Discharge Disposition: Home, Self-Care 01 Condition: Good - Referral to Home Health Primary Care Physician: Hilaria Abreu NP - Discharge Diagnosis/Problem(s) (1) 39 weeks gestation of SNOMED Code(s): 63106206 ICD Code: Z3A.39 - 39 WEEKS GESTATION OF Status: Acute Current Visit: Yes (2) GBS (group B Streptococcus carrier), +RV culture, currently SNOMED Code(s): 3090473603944, 600785660, 8714179734753 ICD Code: O99.820 - STREPTOCOCCUS B CARRIER STATE COMPLICATING Status: Acute Current Visit: Yes (3) Vacuum-assisted vaginal delivery SNOMED Code(s): 28673018113638792 ICD Code: Z37.9 - OUTCOME OF DELIVERY, UNSPECIFIED Status: Acute Current Visit: Yes - Patient Summary/Data Complications: None Consults: None Recommended Follow-up Testing/Procedures: Follow up in 3 weeks Hospital Course: 40 y/o at 39 3/7 wks who presented for elective IOL . Done with balloon device, pitocin, and AROM. Progressed well. After 3 hours of pushing did proceed with a VAVD for exhaustion. This was uncomplicated. See delivery note. did well and was discharged home on PPD#1 - Patient Instructions Diet: Regular Diet as Tolerated Activity: As Tolerated Activity, Other: Pelvic rest for 6 weeks Driving: May Drive Today Showering/Bathing: May Shower Showering/Bathing, Other: May Bathe Notify Provider of: Fever, Increased Pain, Swelling and Redness, Drainage, Nausea and/or Vomiting - Discharge Plan *PRESCRIPTION DRUG MONITORING PROGRAM REVIEWED*: No *COPY OF PRESCRIPTION DRUG MONITORING REPORT IN PATIENT [place]: No Home Medications: Home Meds Acetaminophen [Tylenol Extra Strength] 1,000 mg PO Q6H PRN 05/20/21 [History] No122/Iron/Folic Acid [ Multi Tablet] 1 each PO DAILY 05/20/21 [History] Docusate Sodium [Colace] 100 mg PO BID PRN cap 05/22/21 [Rx] Ibuprofen [Motrin] 600 mg PO Q6H PRN tablet 05/22/21 [Rx] Patient Handouts: and Breast Care, Care After Vaginal Delivery Referrals: Bekah Hoyos MD [Physician] - (3 weeks ) - Discharge Summary/Plan Comment DC Time >30 min.: No Total # of Minutes for Discharge Time: 15 - Patient Data Vitals - Most Recent: Last Vital Signs Temp 36.5 C 05/22/21 15:41 Pulse 101 H 05/22/21 15:41 Resp 14 05/22/21 15:41 BP 113/75 05/22/21 15:41 Pulse Ox 97 05/22/21 15:41 Weight - Most Recent: 103.238 kg Lab Results - Last 24 hrs: Laboratory Results - last 24 hr 05/20/21 Range/Units 08:02 Hepatitis C Antibody <0.1 (0.0-0.9) s/co ratio Med Orders - Current: Current Medications Acetaminophen (Acetaminophen 325 Mg Tab) 650 mg PO Q4H PRN PRN Reason: mild pain or fever Last Admin: 05/21/21 11:16 Dose: 650 mg Documented by: Benzocaine/Menthol (Benzocaine/Menthol 20%-0.5% [place] 78 Gm Cannister) 0 gm TOP ASDIRECTED PRN PRN Reason: Perineal Comfort Measure Last Admin: 05/21/21 02:44 Dose: 1 can Documented by: Docusate Sodium (Docusate Sodium 100 Mg Cap) 100 mg PO BID PRN PRN Reason: Constipation Ibuprofen (Ibuprofen 600 Mg Tab) 600 mg PO Q6H PRN PRN Reason: Mild pain or fever Last Admin: 05/22/21 15:44 Dose: 600 mg Documented by: Radha Moodyel (Witch Janis Medicated Pads 40/Jar) 1 pad TOP ASDIRECTED PRN PRN Reason: Perineal Comfort Measure Last Admin: 05/21/21 20:34 Dose: 1 tub Documented by: Discontinued Medications Acetaminophen (Acetaminophen 325 Mg Tab) 650 mg PO Q4H PRN PRN Reason: Fever greater than 100.4 Last Admin: 05/20/21 21:31 Dose: 650 mg Documented by: Bupivacaine HCl (Bupivacaine 0.25% 10 Ml Sdv) 10 ml .ROUTE .STK-MED ONE Stop: 05/21/21 16:01 Calcium Carbonate/Glycine (Calcium Carbonate 500 Mg Tab.Chew) 1,000 mg PO Q2H PRN PRN Reason: Indigestion Diphenhydramine HCl (Diphenhydramine 50 Mg/Ml Sdv) 25 mg IVPUSH Q6H PRN PRN Reason: pruritis Last Admin: 05/20/21 20:04 Dose: 25 mg Documented by: Ephedrine Sulfate (Ephedrine 50 Mg/Ml Sdv) 5 mg IVPUSH ASDIRECTED PRN PRN Reason: Hypotension Ephedrine Sulfate (Ephedrine 50 Mg/Ml Sdv) 50 mg .ROUTE .STK-MED ONE Stop: 05/21/21 16:01 Famotidine (Famotidine 20 Mg/2 Ml Sdv) 20 mg IVPUSH ONETIME ONE Stop: 05/21/21 00:30 Last Admin: 05/21/21 00:50 Dose: 20 mg Documented by: Fentanyl (Fentanyl 100 Mcg/2 Ml Sdv) 100 mcg EPIDUR Q3H PRN PRN Reason: Pain Last Admin: 05/20/21 14:37 Dose: 100 mcg Documented by: Fentanyl/Bupivacaine HCl (Bupivacaine/Fentanyl/Ns 100 Ml Bag) 100 ml EPIDUR ASDIRECTED PRN PRN Reason: Pain Last Admin: 05/20/21 21:25 Dose: 100 ml Documented by: Vancomycin HCl 1 gm/ Sodium (Chloride) 250 mls @ 250 mls/hr IV Q12H OMI Last Admin: 05/20/21 20:06 Dose: 250 mls/hr Documented by: Oxytocin/Lactated Ringer's (Pitocin In Lr 10 Units/1,000 Ml) 10 unit in 1,000 mls @ 12 mls/hr IV TITRATE OMI; Protocol Last Titration: 05/20/21 23:46 Dose: 20 munits/min, 120 mls/hr Documented by: Lactated Ringer's (Ringers, Lactated) 1,000 mls @ 40 mls/hr IV ASDIRECTED OMI Last Admin: 05/20/21 15:48 Dose: 999 mls/hr Documented by: Oxytocin/Lactated Ringer's (Pitocin In Lr 10 Units/1,000 Ml) 10 unit in 1,000 mls @ 500 mls/hr IV ASDIRECTED OMI; Protocol Lidocaine HCl (Lidocaine 1% 50 Ml Mdv) 20 ml INJECT ONETIME ONE Stop: 05/20/21 07:35 Last Admin: 05/21/21 04:17 Dose: Not Given Documented by: Misoprostol (Misoprostol 200 Mcg Tab) 600 mcg PO ONETIME ONE Stop: 05/21/21 01:38 Last Admin: 05/21/21 01:37 Dose: 600 mcg Documented by: Nalbuphine HCl (Nalbuphine 10 Mg/1 Ml Vial) 10 mg IVPUSH Q2H PRN PRN Reason: Pain Ondansetron HCl (Ondansetron 4 Mg/2 Ml Sdv) 4 mg IVPUSH Q4H PRN PRN Reason: Nausea/Vomiting Sodium Chloride (Sodium Chloride 0.9% 10 Ml Syringe) 10 ml FLUSH ASDIRECTED PRN PRN Reason: Keep Vein Open
[2021-05-22] MEDS: Acetaminophen 325 MG Tab PO PRN (19:59)
--- NOTE | 2021-05-23 08:15 | PCM.PNPP ---
- General Info Date of Service: 05/23/21 Functional Status: Reports: Pain Controlled, Tolerating Diet, Ambulating, Urinating - Review of Systems General: Reports: No Symptoms Pulmonary: Reports: No Symptoms Cardiovascular: Reports: No Symptoms Gastrointestinal: Reports: No Symptoms Genitourinary: Reports: No Symptoms Musculoskeletal: Reports: No Symptoms Neurological: Reports: No Symptoms - General Info Date of Service: 05/23/21 - Patient Data Vital Signs - Most Recent: Last Vital Signs Temp 36.6 C 05/23/21 02:42 Pulse 83 05/23/21 02:42 Resp 14 05/23/21 02:42 BP 118/82 05/23/21 02:42 Pulse Ox 98 05/23/21 02:42 Weight - Most Recent: 103.238 kg Lab Results - Last 24 Hours: Laboratory Results - last 24 hr 05/20/21 Range/Units 08:02 Hepatitis C Antibody <0.1 (0.0-0.9) s/co ratio Med Orders - Current: Current Medications Acetaminophen (Acetaminophen 325 Mg Tab) 650 mg PO Q4H PRN PRN Reason: mild pain or fever Last Admin: 05/22/21 19:59 Dose: 650 mg Documented by: Benzocaine/Menthol (Benzocaine/Menthol 20%-0.5% [place] 78 Gm Cannister) 0 gm TOP ASDIRECTED PRN PRN Reason: Perineal Comfort Measure Last Admin: 05/21/21 02:44 Dose: 1 can Documented by: Docusate Sodium (Docusate Sodium 100 Mg Cap) 100 mg PO BID PRN PRN Reason: Constipation Ibuprofen (Ibuprofen 600 Mg Tab) 600 mg PO Q6H PRN PRN Reason: Mild pain or fever Last Admin: 05/22/21 21:42 Dose: 600 mg Documented by: Radha Bruce (Radha Bruce Medicated Pads 40/Jar) 1 pad TOP ASDIRECTED PRN PRN Reason: Perineal Comfort Measure Last Admin: 05/21/21 20:34 Dose: 1 tub Documented by: Discontinued Medications Acetaminophen (Acetaminophen 325 Mg Tab) 650 mg PO Q4H PRN PRN Reason: Fever greater than 100.4 Last Admin: 05/20/21 21:31 Dose: 650 mg Documented by: Bupivacaine HCl (Bupivacaine 0.25% 10 Ml Sdv) 10 ml .ROUTE .STK-MED ONE Stop: 05/21/21 16:01 Calcium Carbonate/Glycine (Calcium Carbonate 500 Mg Tab.Chew) 1,000 mg PO Q2H PRN PRN Reason: Indigestion Diphenhydramine HCl (Diphenhydramine 50 Mg/Ml Sdv) 25 mg IVPUSH Q6H PRN PRN Reason: pruritis Last Admin: 05/20/21 20:04 Dose: 25 mg Documented by: Ephedrine Sulfate (Ephedrine 50 Mg/Ml Sdv) 5 mg IVPUSH ASDIRECTED PRN PRN Reason: Hypotension Ephedrine Sulfate (Ephedrine 50 Mg/Ml Sdv) 50 mg .ROUTE .STK-MED ONE Stop: 05/21/21 16:01 Famotidine (Famotidine 20 Mg/2 Ml Sdv) 20 mg IVPUSH ONETIME ONE Stop: 05/21/21 00:30 Last Admin: 05/21/21 00:50 Dose: 20 mg Documented by: Fentanyl (Fentanyl 100 Mcg/2 Ml Sdv) 100 mcg EPIDUR Q3H PRN PRN Reason: Pain Last Admin: 05/20/21 14:37 Dose: 100 mcg Documented by: Fentanyl/Bupivacaine HCl (Bupivacaine/Fentanyl/Ns 100 Ml Bag) 100 ml EPIDUR ASDIRECTED PRN PRN Reason: Pain Last Admin: 05/20/21 21:25 Dose: 100 ml Documented by: Vancomycin HCl 1 gm/ Sodium (Chloride) 250 mls @ 250 mls/hr IV Q12H OMI Last Admin: 05/20/21 20:06 Dose: 250 mls/hr Documented by: Oxytocin/Lactated Ringer's (Pitocin In Lr 10 Units/1,000 Ml) 10 unit in 1,000 mls @ 12 mls/hr IV TITRATE OMI; Protocol Last Titration: 05/20/21 23:46 Dose: 20 munits/min, 120 mls/hr Documented by: Lactated Ringer's (Ringers, Lactated) 1,000 mls @ 40 mls/hr IV ASDIRECTED OMI Last Admin: 05/20/21 15:48 Dose: 999 mls/hr Documented by: Oxytocin/Lactated Ringer's (Pitocin In Lr 10 Units/1,000 Ml) 10 unit in 1,000 mls @ 500 mls/hr IV ASDIRECTED OMI; Protocol Lidocaine HCl (Lidocaine 1% 50 Ml Mdv) 20 ml INJECT ONETIME ONE Stop: 05/20/21 07:35 Last Admin: 05/21/21 04:17 Dose: Not Given Documented by: Misoprostol (Misoprostol 200 Mcg Tab) 600 mcg PO ONETIME ONE Stop: 05/21/21 01:38 Last Admin: 05/21/21 01:37 Dose: 600 mcg Documented by: Nalbuphine HCl (Nalbuphine 10 Mg/1 Ml Vial) 10 mg IVPUSH Q2H PRN PRN Reason: Pain Ondansetron HCl (Ondansetron 4 Mg/2 Ml Sdv) 4 mg IVPUSH Q4H PRN PRN Reason: Nausea/Vomiting Sodium Chloride (Sodium Chloride 0.9% 10 Ml Syringe) 10 ml FLUSH ASDIRECTED PRN PRN Reason: Keep Vein Open - Interaction Infant Disposition, : [place] in Room with Family Interaction: Holding Infant Infant Feeding: Attempted ; Nursed Fair/Poor Support Person: Significant Other - Recovery Exam Fundal Tone: Firm Fundal Level: 1 Fingerbreadths Below Umbilicus Fundal Placement: Midline Lochia Amount: Small Lochia Color: Rubra/Red Perineum Description: Other (see below) Other Perinuem Description: 2nd degree lac with repair Episiotomy/Laceration: Approximated Bladder Status: Voiding Urinary Elimination: Voided - Exam General: Alert, Oriented, Cooperative GI/Abdominal Exam: Soft, Non-Tender - Problem List & Annotations (1) 39 weeks gestation of SNOMED Code(s): 69704096 Code(s): Z3A.39 - 39 WEEKS GESTATION OF Status: Acute Current Visit: Yes (2) GBS (group B Streptococcus carrier), +RV culture, currently SNOMED Code(s): 6865127066844, 062856594, 6668444430469 Code(s): O99.820 - STREPTOCOCCUS B CARRIER STATE COMPLICATING Status: Acute Current Visit: Yes (3) Vacuum-assisted vaginal delivery SNOMED Code(s): 24577021129312672 Code(s): Z37.9 - OUTCOME OF DELIVERY, UNSPECIFIED Status: Acute Current Visit: Yes - Problem List Review Problem List Initiated/Reviewed/Updated: Yes - Assessment Assessment:: POD#2 - Plan Plan:: * Routine cares * Breast feeding * Was going to discharge yesterday, but baby with increased bili. Will discharge mom today
== END 2021-05-23 15:00 | disposition home or self-care (01) | DRG 807 ==
LOC: JD.OB 01:17 → OBSVTOIN 05-21 01:17
PROVIDERS: ADMIT Obstetrics & Gynecology; ATTEND Obstetrics & Gynecology
PROC: 10D07Z6 Extraction of Products of Conception, Vacuum, Via Natural or Artificial Opening (ICD-10-PCS; principal; 2021-05-21)
PROC: 0KQM0ZZ Repair Perineum Muscle, Open Approach (ICD-10-PCS; 2021-05-21)
PROC: 10907ZC Drainage of Amniotic Fluid, Therapeutic from Products of Conception, Via Natural or Artificial Opening (ICD-10-PCS; 2021-05-21)
PROC: 3E0P7VZ Introduction of Hormone into Female Reproductive, Via Natural or Artificial Opening (ICD-10-PCS; 2021-05-21)
PROC: 3E033VJ Introduction of Other Hormone into Peripheral Vein, Percutaneous Approach (ICD-10-PCS; 2021-05-21)
PROC: 10H07YZ Insertion of Other Device into Products of Conception, Via Natural or Artificial Opening (ICD-10-PCS; 2021-05-21)
PROC: 3E0R3BZ Introduction of Anesthetic Agent into Spinal Canal, Percutaneous Approach (ICD-10-PCS; 2021-05-21)
PROC: 00HU33Z Insertion of Infusion Device into Spinal Canal, Percutaneous Approach (ICD-10-PCS; 2021-05-21)
DX: O99.824 Streptococcus B carrier state complicating childbirth (principal); Z37.0 Single live birth; Z20.822 Contact with and (suspected) exposure to COVID-19; O99.62 Diseases of the digestive system complicating childbirth; K21.9 Gastro-esophageal reflux disease without esophagitis; K57.90 Diverticulosis of intestine, part unspecified, without perforation or abscess without bleeding; O69.1XX0 Labor and delivery complicated by cord around neck, with compression, not applicable or unspecified; Z3A.39 39 weeks gestation of pregnancy; Z88.1 Allergy status to other antibiotic agents; Z88.0 Allergy status to penicillin; Z88.2 Allergy status to sulfonamides; Z79.899 Other long term (current) drug therapy; Z87.891 Personal history of nicotine dependence; Z90.49 Acquired absence of other specified parts of digestive tract; Z98.890 Other specified postprocedural states
CPT/HCPCS: 01967; 36415; 51701; 51702; 59025; 59409; 85025; 86592; 86803; 86850; 86900; 86901; A9270-GY; C1726; J1200; J2590; J3010; J3370; J3490; J7050; J7120; U0002

== ENCOUNTER 2021-11-19 12:59 | Emergency (ER) | payer OTHER ==
[2021-11-19] MEDS ORDERED: Sodium Chloride 0.9% 10 ML Syringe FLUSH PRN (13:22)
== END 2021-11-19 14:46 | disposition home or self-care (01) ==
LOC: JD.ED 12:59
DX: R00.2 Palpitations (principal); R42 Dizziness and giddiness; E66.9 Obesity, unspecified; Z68.31 Body mass index [BMI] 31.0-31.9, adult; Z88.0 Allergy status to penicillin; Z88.2 Allergy status to sulfonamides; Z88.1 Allergy status to other antibiotic agents
CPT/HCPCS: 36415; 71045; 71045-26; 80053; 83735; 83880; 84484; 85025; 85610; 85730; 93005; 93225; 93226; 99285-25

== ENCOUNTER 2022-12-28 05:23 | Emergency (ER) | payer OTHER ==
[2022-12-28] MEDS ORDERED: Morphine 4 MG/ML Syringe IVPUSH ONE ×2 (05:55→07:52)
[2022-12-28] MEDS ORDERED: Ondansetron 4 MG/2 ML SDV IVPUSH ONE (06:35)
[2022-12-28] MEDS ORDERED: Levofloxacin/Dextrose 5%-Water 750 MG in Premix Bag 1 BAG IV ONE (07:33)
== END 2022-12-28 09:40 | disposition home or self-care (01) ==
LOC: JD.ED 05:23
DX: K57.32 Diverticulitis of large intestine without perforation or abscess without bleeding (principal); K21.9 Gastro-esophageal reflux disease without esophagitis; E66.9 Obesity, unspecified; Z68.30 Body mass index [BMI] 30.0-30.9, adult; Z86.16 Personal history of COVID-19; Z88.1 Allergy status to other antibiotic agents; Z88.0 Allergy status to penicillin; Z88.2 Allergy status to sulfonamides; Z79.899 Other long term (current) drug therapy
CPT/HCPCS: 36415; 74177; 80053; 83690; 85027; 93005; 96365; 96375; 96376; 99284; J1956; J2270; J2405; 93010

== ENCOUNTER 2023-11-16 10:07 | Emergency (ER) | payer OTHER | END 2023-11-16 11:55 | disposition home or self-care (01) | LOC: JD.ED 10:07 | DX: T78.09XA Anaphylactic reaction due to other food products, initial encounter (principal); K21.9 Gastro-esophageal reflux disease without esophagitis; E66.9 Obesity, unspecified; Z86.16 Personal history of COVID-19; Z79.899 Other long term (current) drug therapy; Z88.0 Allergy status to penicillin; Z88.1 Allergy status to other antibiotic agents; Z88.2 Allergy status to sulfonamides | CPT/HCPCS: 99283; 99284 ==

== ENCOUNTER 2023-12-04 07:44 | Emergency (ER) | payer OTHER | END 2023-12-04 09:23 | disposition home or self-care (01) | LOC: JD.ED 07:44 | DX: T78.40XA Allergy, unspecified, initial encounter (principal); K21.00 Gastro-esophageal reflux disease with esophagitis, without bleeding; E66.9 Obesity, unspecified; K21.9 Gastro-esophageal reflux disease without esophagitis; Z88.0 Allergy status to penicillin; Z88.1 Allergy status to other antibiotic agents; Z88.2 Allergy status to sulfonamides; Z88.8 Allergy status to other drugs, medicaments and biological substances; Z86.16 Personal history of COVID-19; Z79.899 Other long term (current) drug therapy; Z68.30 Body mass index [BMI] 30.0-30.9, adult | CPT/HCPCS: 99283 ==

== ENCOUNTER 2024-12-14 23:09 | Emergency (ER) | payer OTHER ==
[2024-12-14] MEDS: Ketorolac 30 MG/ML SDV IM ONE (23:49)
== END 2024-12-15 00:20 | disposition left against medical advice (07) ==
LOC: JD.ED 23:09
DX: Z53.21 Procedure and treatment not carried out due to patient leaving prior to being seen by health care provider (principal)
CPT/HCPCS: J1885